=== PATIENT | female | born 1945 | race Two or more races ===

== ENCOUNTER 2016-07-26 22:12 | Inpatient (IN) | payer MEDICARE, OTHER ==
[~2016-07-26] VITALS: Ht 154.9 cm; Wt 136.1 kg
[~2016-07-26 22:12] MED LIST: ASPI-482 PO; SERT100T PO; diuretic PO; losartan PO; multivitamin PO; potassium PO
[2016-07-26 22:40] LABS: BASO % 1 % (0-3); EOS % 2 % (0-3); HEMATOCRIT 33.2 % (36.0-47.0); HEMOGLOBIN 11.2 g/dL (12.0-15.5); LYMPH % 25 % (24-48); MEAN CORPUSCULAR HEMOGLOBIN 31 pg (25-35); MEAN CORPUSCULAR HGB CONC 34 g/dL (31-37); MEAN CORPUSCULAR VOLUME 91 fL (79-100); MONO % 7 % (0-9); NEUT % 66 % (31-73); PLATELET COUNT 213 x10^3/uL (140-400); RED BLOOD COUNT 3.64 x10^6/uL (3.50-5.40); RED CELL DISTRIBUTION WIDTH 13.7 % (11.5-14.5)
[2016-07-26] MEDS ORDERED: PANTOPRAZOLE SODIUM IV 80 MG in IV NORMAL SALINE 100ML 100 ML IV ONE (22:45)
[2016-07-26] MEDS ORDERED: ONDANSETRON PF 4 MG/2 ML VIAL. IV PRN (22:45)
[2016-07-26] MEDS ORDERED: PANTOPRAZOLE IV PUSH 40 MG VIAL. IVP ONE (22:45)
[2016-07-26 22:46] LABS: INR 1.2 (0.8-1.1); PROTHROMBIN TIME PATIENT 14.6 SEC (11.7-14.0)
[2016-07-26 22:52] LABS: NEG OBC FOB NEG; POS OBC FOB POS
[2016-07-26 23:00] LABS: ALBUMIN 3.1 g/dL (3.4-5.0); CALCIUM 8.5 mg/dL (8.5-10.1); CREATININE 0.8 mg/dL (0.6-1.0); DIRECT BILIRUBIN 0.1 mg/dL (0.0-0.2); GFR 71.1; POTASSIUM 4.4 mmol/L (3.5-5.1); TOTAL BILIRUBIN 0.5 mg/dL (0.2-1.0); TOTAL PROTEIN 6.7 g/dL (6.4-8.2)
--- NOTE | 2016-07-26 23:22 | PHYS DOC ---
Past Medical History Past Medical History: Cancer, Depression, Hypertension Past Surgical History: Cancer Surgery, Knee Replacement, Other Additional Past Surgical Histo: LEFT MASECTOMY, FOOT SURGERY, CATARACTS Alcohol Use: None Drug Use: None Adult General Chief Complaint Chief Complaint: NAUSEA/VOMITING/DIARRHA HPI HPI Patient is a 71 year old female who presents with 3 days of dark red blood in stools, loose stools, nonpainful and one episode of emesis with bright red blood this evening. She denies abdominal pain, but has minimal vague nausea. She denies lightheadedness, dyspnea, chest pain, palpitations, back pain, dysuria, hematuria, rectal pain, fever or chills, recent travel or antibiotics. States she had a colonoscopy years ago, but does not follow with a grease remover. Denies history of peptic ulcers, liver disease, or known diverticulosis. Not anticoagulated. PCP is at [facility]. She no longer sees Dr. Martinez. Review of Systems Review of Systems Constitutional: Denies fever or chills [] Eyes: Denies change in visual acuity, redness, or eye pain [] HENT: Denies nasal congestion or sore throat [] Respiratory: Denies cough or shortness of breath [] Cardiovascular: No additional information not addressed in HPI [] GI: Denies abdominal pain [] : Denies dysuria or hematuria [] Musculoskeletal: Denies back pain or joint pain [] Integument: Denies rash or skin lesions [] Neurologic: Denies headache, focal weakness or sensory changes [] Endocrine: Denies polyuria or polydipsia [] Current Medications Current Medications Current Medications Medications (Trade) Dose Ordered Sig/[facility] Start Time Stop Time Status Last Admin Dose Admin Acetaminophen (Tylenol) 650 mg PRN Q4HRS PRN 07/27/16 00:00 07/27/16 23:59 UNV Fentanyl Citrate (Fentanyl 2ml Vial) 50 mcg PRN Q2HR PRN 07/27/16 00:00 07/27/16 23:59 UNV Ondansetron HCl (Zofran) 4 mg PRN Q6HRS PRN 07/26/16 22:45 07/26/16 22:54 4 MG Pantoprazole Sodium (Protonix Vial) 40 mg 1X ONCE 07/26/16 22:45 07/26/16 22:46 DC 07/26/16 22:56 40 MG Pantoprazole Sodium 80 mg/ Sodium Chloride 100 ml @ 10 mls/hr 1X ONCE 07/26/16 22:45 07/27/16 08:44 07/26/16 23:03 10 MLS/HR Potassium Chloride/Dextrose/ Sod Cl 1,000 ml @ 75 mls/hr 1X ONCE 07/27/16 00:00 07/27/16 13:19 UNV Sodium Chloride 1,000 ml @ 1,000 mls/hr 1X ONCE 07/26/16 23:30 07/27/16 00:29 Allergies Allergies Allergies Coded Allergies Type Severity Reaction Last Updated Verified adhesive tape Allergy Unknown 07/26/16 Yes codeine Allergy Unknown 07/26/16 Yes Physical Exam Physical Exam Constitutional: Well developed, well nourished, no acute distress, non-toxic appearance. [] HENT: Normocephalic, atraumatic, bilateral external ears normal, oropharynx moist, nose normal. [] Eyes: PERRLA, EOMI. [] Neck: Normal range of motion, supple. [] Cardiovascular: Regular tachycardia [] Lungs & Thorax: Bilateral breath sounds clear to auscultation [] Abdomen: Bowel sounds normal, soft, no tenderness. Rectal exam with dark red blood on glove, no formed stool in the vault, no bleeding hemorrhoids or fissure , nontender rectal exam. [] Skin: Warm, dry, no erythema, no rash. [] Back: No tenderness, no CVA tenderness. [] Extremities: No tenderness, ROM intact, no edema. [] Neurologic: Alert and oriented X 3, normal motor function, normal sensory function, no focal deficits noted. [] Psychologic: Affect normal, judgement normal, mood normal. [] Current Patient Data Vital Signs Vital Signs Date Time Temp Pulse Resp B/P (MAP) Pulse Ox O2 Delivery O2 Flow Rate FiO2 07/26/16 22:12 97.8 97 22 172/68 (102) 97 Room Air 97.8 Lab Values Laboratory Tests Test 07/26/16 22:20 07/26/16 22:45 White Blood Count 8.0 x10^3/uL (4.0-11.0) Red Blood Count 3.64 x10^6/uL (3.50-5.40) Hemoglobin 11.2 g/dL (12.0-15.5) L Hematocrit 33.2 % (36.0-47.0) L Mean Corpuscular Volume 91 fL (79-100) Mean Corpuscular Hemoglobin 31 pg (25-35) Mean Corpuscular Hemoglobin Concent 34 g/dL (31-37) Red Cell Distribution Width 13.7 % (11.5-14.5) Platelet Count 213 x10^3/uL (140-400) Neutrophils (%) (Auto) 66 % (31-73) Lymphocytes (%) (Auto) 25 % (24-48) Monocytes (%) (Auto) 7 % (0-9) Eosinophils (%) (Auto) 2 % (0-3) Basophils (%) (Auto) 1 % (0-3) Neutrophils # (Auto) 5.3 x10^3uL (1.8-7.7) Lymphocytes # (Auto) 2.0 x10^3/uL (1.0-4.8) Monocytes # (Auto) 0.6 x10^3/uL (0.0-1.1) Eosinophils # (Auto) 0.1 x10^3/uL (0.0-0.7) Basophils # (Auto) 0.0 x10^3/uL (0.0-0.2) Prothrombin Time 14.6 SEC (11.7-14.0) H Prothrombin Time INR 1.2 (0.8-1.1) H PTT 27 SEC (24-38) Sodium Level 143 mmol/L (136-145) Potassium Level 4.4 mmol/L (3.5-5.1) Chloride Level 109 mmol/L (98-107) H Carbon Dioxide Level 23 mmol/L (21-32) Anion Gap 11 (6-14) Blood Urea Nitrogen 43 mg/dL (7-20) H Creatinine 0.8 mg/dL (0.6-1.0) Estimated GFR (Cockcroft-Gault) 71.1 Glucose Level 161 mg/dL (70-99) H Calcium Level 8.5 mg/dL (8.5-10.1) Total Bilirubin 0.5 mg/dL (0.2-1.0) Direct Bilirubin 0.1 mg/dL (0.0-0.2) Aspartate Amino Transferase (AST) 17 U/L (15-37) Alanine Aminotransferase (ALT) 26 U/L (14-59) Alkaline Phosphatase 39 U/L (46-116) L Total Protein 6.7 g/dL (6.4-8.2) Albumin 3.1 g/dL (3.4-5.0) L Stool Occult Blood Positive (NEG) Laboratory Tests 07/26/16 22:20 Laboratory Tests 07/26/16 22:20 EKG EKG EKG as interpreted by me as sinus tachycardia, rate 112, no ST-T changes, normal intervals, no ectopy Course & Med Decision Making Course & Med Decision Making Pertinent Labs and Imaging studies reviewed. (See chart for details) Has history of upper and lower GI bleeding. She was started on Protonix. She was given IV fluids for tachycardia. Laboratory evaluation reveals elevated BUN , reinforcing suspicion for upper GI bleeding. However, clinical concern also for lower GI bleeding. Discussed case with Dr. Quiles, gastroenterology, who agrees with Protonix drip and recommends ICU admission overnight given unclear etiology of bleeding. Discussed case with Dr. Rivero, who will admit. Dragon Disclaimer Dragon Disclaimer This electronic medical record was generated, in whole or in part, using a voice recognition dictation system. Departure Departure Impression: Primary Impression: GI bleed Disposition: ADMITTED INPATIENT Condition: CRITICAL Problem Qualifiers Primary Impression: GI bleed GI bleed type/associated pathology: unspecified gastrointestinal hemorrhage type Qualified Codes: K92.2 - Gastrointestinal hemorrhage, unspecified John SWANSON MD July 26, 2016 23:22
[2016-07-26] MEDS ORDERED: IV NORMAL SALINE 1000ML BAG 1,000 ML IV ONE (23:30)
[2016-07-27] VITALS (17 sets, daily range): BP systolic 126–161; BP diastolic 64–95
[2016-07-27] MEDS ORDERED: fentaNYL PF VIAL 100 MCG/2 ML VIAL IV PRN
[2016-07-27] MEDS ORDERED: POTASSIUM CL 20MEQ D5-0.9%NACL 1,000 ML IV ONE
--- NOTE | 2016-07-27 07:29 | EKG ---
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
[2016-07-27 08:33] LABS: BASO % 0 % (0-3); EOS % 1 % (0-3); HEMATOCRIT 28.2 % (36.0-47.0); HEMOGLOBIN 9.4 g/dL (12.0-15.5); LYMPH # 2.5 x10^3/uL (1.0-4.8); LYMPH % 31 % (24-48); MEAN CORPUSCULAR HEMOGLOBIN 31 pg (25-35); MEAN CORPUSCULAR HGB CONC 33 g/dL (31-37); MEAN CORPUSCULAR VOLUME 93 fL (79-100); MONO % 7 % (0-9); NEUT % 61 % (31-73); PLATELET COUNT 171 x10^3/uL (140-400); RED BLOOD COUNT 3.05 x10^6/uL (3.50-5.40)
--- NOTE | 2016-07-27 09:21 | PDOC2 ---
GI CONSULT Reason For Consult: Upper GI Bleed HPI: HPI: 71 y/o female admitted through ER to ICU reports 2-3 days of bloody stools w/ one episode of bloody emesis. She had not been feeling weel for a couple days w / sinus congestion, headache, and nausea. Took an OTC "sinus pill" and some ibuprofen. (Note used to take ibuprofen frequently but no longer does.) Also takes ASA QD. Decreased appetite yesterday but was eating normally before that point. No weight loss. Has occasional GERD symptoms (specifically mentions heartburn after taking her nerve pill) and uses Prilosec OTC PRN. Stools began as formed yesterday and progressively became more loose w/ increased bleeding. (Denies melena - only notes hematochezia.) No previous EGD. Does recall colonoscopy years ago as normal. Hgb 11.2 (now 9.4) w/ elevated BUN (43), hemoccult was positive. Kept NPO on PPI drip. PMH: PMH: HTN, asthma, depression, GERD, breast cancer, appendectomy, cholecystectomy, tubal ligation, bilateral mastectomy, left lumpectomy, left breast biopsy, multiple feet surgeries, bilateral knee replacements, abdominoplasty, cataract extraction FH: Family History: No pertinent hx Social History: Smoke: No ALCOHOL: none Drugs: None ROS: GEN: Denies fevers, chills, sweats HEENT: +sinus congestion CV: Denies chest pain RESP: Denies shortness of air, cough GI: Per HPI : Denies hematuria, dysuria ENDO: Denies weight changes NEURO: +headache MSK: Denies weakness, joint pain/swelling SKIN: Denies jaundice, pruritus Vitals: Vitals: Vital Signs Date Time Temp Pulse Resp B/P (MAP) Pulse Ox O2 Delivery O2 Flow Rate FiO2 07/27/16 08:04 80 18 138/88 (105) 98 Room Air 07/27/16 07:00 98.2 98.2 Labs: Labs: Laboratory Tests Test 07/26/16 22:20 07/26/16 22:45 07/27/16 08:05 White Blood Count 8.0 x10^3/uL (4.0-11.0) 8.0 x10^3/uL (4.0-11.0) Red Blood Count 3.64 x10^6/uL (3.50-5.40) 3.05 x10^6/uL (3.50-5.40) Hemoglobin 11.2 g/dL (12.0-15.5) 9.4 g/dL (12.0-15.5) Hematocrit 33.2 % (36.0-47.0) 28.2 % (36.0-47.0) Mean Corpuscular Volume 91 fL (79-100) 93 fL (79-100) Mean Corpuscular Hemoglobin 31 pg (25-35) 31 pg (25-35) Mean Corpuscular Hemoglobin Concent 34 g/dL (31-37) 33 g/dL (31-37) Red Cell Distribution Width 13.7 % (11.5-14.5) 14.0 % (11.5-14.5) Platelet Count 213 x10^3/uL (140-400) 171 x10^3/uL (140-400) Neutrophils (%) (Auto) 66 % (31-73) 61 % (31-73) Lymphocytes (%) (Auto) 25 % (24-48) 31 % (24-48) Monocytes (%) (Auto) 7 % (0-9) 7 % (0-9) Eosinophils (%) (Auto) 2 % (0-3) 1 % (0-3) Basophils (%) (Auto) 1 % (0-3) 0 % (0-3) Neutrophils # (Auto) 5.3 x10^3uL (1.8-7.7) 4.9 x10^3uL (1.8-7.7) Lymphocytes # (Auto) 2.0 x10^3/uL (1.0-4.8) 2.5 x10^3/uL (1.0-4.8) Monocytes # (Auto) 0.6 x10^3/uL (0.0-1.1) 0.6 x10^3/uL (0.0-1.1) Eosinophils # (Auto) 0.1 x10^3/uL (0.0-0.7) 0.1 x10^3/uL (0.0-0.7) Basophils # (Auto) 0.0 x10^3/uL (0.0-0.2) 0.0 x10^3/uL (0.0-0.2) Prothrombin Time 14.6 SEC (11.7-14.0) Prothromb Time International Ratio 1.2 (0.8-1.1) Activated Partial Thromboplast Time 27 SEC (24-38) Sodium Level 143 mmol/L (136-145) Potassium Level 4.4 mmol/L (3.5-5.1) Chloride Level 109 mmol/L (98-107) Carbon Dioxide Level 23 mmol/L (21-32) Anion Gap 11 (6-14) Blood Urea Nitrogen 43 mg/dL (7-20) Creatinine 0.8 mg/dL (0.6-1.0) Estimated GFR (Cockcroft-Gault) 71.1 Glucose Level 161 mg/dL (70-99) Calcium Level 8.5 mg/dL (8.5-10.1) Total Bilirubin 0.5 mg/dL (0.2-1.0) Direct Bilirubin 0.1 mg/dL (0.0-0.2) Aspartate Amino Transf (AST/SGOT) 17 U/L (15-37) Alanine Aminotransferase (ALT/SGPT) 26 U/L (14-59) Alkaline Phosphatase 39 U/L (46-116) Total Protein 6.7 g/dL (6.4-8.2) Albumin 3.1 g/dL (3.4-5.0) Stool Occult Blood Positive (NEG) Allergies: Coded Allergies: adhesive tape (Verified Allergy, Unknown, 07/26/16) codeine (Verified Allergy, Unknown, 07/26/16) Medications: Current Medications Medications (Trade) Dose Ordered Sig/[facility] Route PRN Reason Start Time Stop Time Status Last Admin Dose Admin Ondansetron HCl (Zofran) 4 mg PRN Q6HRS PRN IV NAUSEA/VOMITING 07/26/16 22:45 07/26/16 22:54 Pantoprazole Sodium (Protonix Vial) 40 mg 1X ONCE IVP 07/26/16 22:45 07/26/16 22:46 DC 07/26/16 22:56 Pantoprazole Sodium 80 mg/ Sodium Chloride 100 ml @ 10 mls/hr 1X ONCE IV 07/26/16 22:45 07/27/16 08:44 DC 07/26/16 23:03 Sodium Chloride 1,000 ml @ 1,000 mls/hr 1X ONCE IV 07/26/16 23:30 07/27/16 00:29 DC 07/27/16 00:12 Potassium Chloride/Dextrose/ Sod Cl 1,000 ml @ 75 mls/hr 1X ONCE IV 07/27/16 00:00 07/27/16 13:19 07/27/16 00:14 Imaging: Imaging: - PE: GEN: NAD HEENT: Atraumatic, PERRL LUNGS: CTAB HEART: RRR ABD: NABS, S/ND/NT, obese SKIN: No rashes, no jaundice NEURO/PSYCH: A & O 3 A/P: A/P: Hematemesis, hematochezia -2-3 days bloody stools, hematemesis x 1 Anemia -Hgb from 11.2 to 9.4 H/o NSAID use -used to take ibuprofen regularly, not so much now although did take recently for headache GERD -occasional heartburn improved w/ Prilosec OTC PRN CRC screen -recalls normal colonoscopy years ago -- D/w Dr. Quiles. Agree w/ NPO, PPI drip. EGD this afternoon r/o upper GI source. D/w pt, RN, GI lab. MAXX WALTER July 27, 2016 09:21
[2016-07-27] MEDS ORDERED: FURO20TA3 PO (09:45)
[2016-07-27] MEDS ORDERED: CARV6.252 PO (09:45)
[2016-07-27] MEDS ORDERED: POTA20TA82 PO (09:45)
[2016-07-27] MEDS ORDERED: VENTOLIN HFA18 GM INH (09:53)
[2016-07-27] MEDS ORDERED: OMEP20CA9 PO (09:55)
[2016-07-27] MEDS ORDERED: ERGO500012 PO (09:55)
[2016-07-27] MEDS ORDERED: TRAM50TA PO (09:55)
--- NOTE | 2016-07-27 09:56 | PDOC1 ---
History and Physical Social History Smoke: No ALCOHOL: none Drugs: None Current Problem List Problem List Problems Medical Problems: (1) GI bleed Status: Acute Current Medications Current Medications Current Medications Medications (Trade) Dose Ordered Sig/[facility] Start Time Stop Time Status Last Admin Dose Admin Acetaminophen (Tylenol) 650 mg PRN Q4HRS PRN 07/27/16 00:00 07/27/16 23:59 Fentanyl Citrate (Fentanyl 2ml Vial) 50 mcg PRN Q2HR PRN 07/27/16 00:00 07/27/16 23:59 Ondansetron HCl (Zofran) 4 mg PRN Q6HRS PRN 07/26/16 22:45 07/26/16 22:54 4 MG Pantoprazole Sodium (Protonix Vial) 40 mg 1X ONCE 07/26/16 22:45 07/26/16 22:46 DC 07/26/16 22:56 40 MG Pantoprazole Sodium 80 mg/ Sodium Chloride 100 ml @ 10 mls/hr Q10H 07/27/16 10:00 Potassium Chloride/Dextrose/ Sod Cl 1,000 ml @ 75 mls/hr 1X ONCE 07/27/16 00:00 07/27/16 13:19 07/27/16 00:14 75 MLS/HR Sodium Chloride 1,000 ml @ 1,000 mls/hr 1X ONCE 07/26/16 23:30 07/27/16 00:29 DC 07/27/16 00:12 1,000 MLS/HR Allergies Allergies Allergies Coded Allergies Type Severity Reaction Last Updated Verified adhesive tape Allergy Unknown 07/26/16 Yes codeine Allergy Unknown 07/26/16 Yes ROS Review of System CONSTITUTIONAL: No fever or chills EYES: No recent changes SKIN: No rash or itching CARDIOVASCULAR: No chest pain, syncope, palpitations, or edema RESPIRATORY: No SOB or cough GASTROINTESTINAL: diarrhea, coffee ground emesis, hematochezia. NEUROLOGICAL: No headaches or weakness ENDOCRINE: No cold or heat intolerance GENITOURINARY: No urgency or frequency of urination MUSCULOSKELETAL: No back pain or joint pain LYMPHATICS: No enlarged lymph nodes PSYCHIATRIC: No anxiety or depression Physical Exam Physical Exam GEN.: No apparent distress. Alert and oriented. obese HEENT: Head is normocephalic, atraumatic NECK: Supple. no JVD LUNGS: Clear to auscultation. Normal airflow. HEART: RRR, S1, S2 present. Peripheral pulses intact ABDOMEN: Soft, nontender. Positive bowel sounds. EXTREMITIES: Without any cyanosis. NEUROLOGIC: Normal speech, normal tone PSYCHIATRIC: Normal affect, normal mood. SKIN: No ulcerations Vitals Vitals Vital Signs Date Time Temp Pulse Resp B/P (MAP) Pulse Ox O2 Delivery O2 Flow Rate FiO2 07/27/16 09:00 73 18 145/79 (101) 96 Room Air 07/27/16 07:00 98.2 98.2 Labs Labs Laboratory Tests Test 07/26/16 22:20 07/26/16 22:45 07/27/16 08:05 White Blood Count 8.0 x10^3/uL (4.0-11.0) 8.0 x10^3/uL (4.0-11.0) Red Blood Count 3.64 x10^6/uL (3.50-5.40) 3.05 x10^6/uL (3.50-5.40) Hemoglobin 11.2 g/dL (12.0-15.5) 9.4 g/dL (12.0-15.5) Hematocrit 33.2 % (36.0-47.0) 28.2 % (36.0-47.0) Mean Corpuscular Volume 91 fL (79-100) 93 fL (79-100) Mean Corpuscular Hemoglobin 31 pg (25-35) 31 pg (25-35) Mean Corpuscular Hemoglobin Concent 34 g/dL (31-37) 33 g/dL (31-37) Red Cell Distribution Width 13.7 % (11.5-14.5) 14.0 % (11.5-14.5) Platelet Count 213 x10^3/uL (140-400) 171 x10^3/uL (140-400) Neutrophils (%) (Auto) 66 % (31-73) 61 % (31-73) Lymphocytes (%) (Auto) 25 % (24-48) 31 % (24-48) Monocytes (%) (Auto) 7 % (0-9) 7 % (0-9) Eosinophils (%) (Auto) 2 % (0-3) 1 % (0-3) Basophils (%) (Auto) 1 % (0-3) 0 % (0-3) Neutrophils # (Auto) 5.3 x10^3uL (1.8-7.7) 4.9 x10^3uL (1.8-7.7) Lymphocytes # (Auto) 2.0 x10^3/uL (1.0-4.8) 2.5 x10^3/uL (1.0-4.8) Monocytes # (Auto) 0.6 x10^3/uL (0.0-1.1) 0.6 x10^3/uL (0.0-1.1) Eosinophils # (Auto) 0.1 x10^3/uL (0.0-0.7) 0.1 x10^3/uL (0.0-0.7) Basophils # (Auto) 0.0 x10^3/uL (0.0-0.2) 0.0 x10^3/uL (0.0-0.2) Prothrombin Time 14.6 SEC (11.7-14.0) Prothromb Time International Ratio 1.2 (0.8-1.1) Activated Partial Thromboplast Time 27 SEC (24-38) Sodium Level 143 mmol/L (136-145) Potassium Level 4.4 mmol/L (3.5-5.1) Chloride Level 109 mmol/L (98-107) Carbon Dioxide Level 23 mmol/L (21-32) Anion Gap 11 (6-14) Blood Urea Nitrogen 43 mg/dL (7-20) Creatinine 0.8 mg/dL (0.6-1.0) Estimated GFR (Cockcroft-Gault) 71.1 Glucose Level 161 mg/dL (70-99) Calcium Level 8.5 mg/dL (8.5-10.1) Total Bilirubin 0.5 mg/dL (0.2-1.0) Direct Bilirubin 0.1 mg/dL (0.0-0.2) Aspartate Amino Transf (AST/SGOT) 17 U/L (15-37) Alanine Aminotransferase (ALT/SGPT) 26 U/L (14-59) Alkaline Phosphatase 39 U/L (46-116) Total Protein 6.7 g/dL (6.4-8.2) Albumin 3.1 g/dL (3.4-5.0) Stool Occult Blood Positive (NEG) Laboratory Tests Test 07/26/16 22:20 07/26/16 22:45 07/27/16 08:05 White Blood Count 8.0 x10^3/uL (4.0-11.0) 8.0 x10^3/uL (4.0-11.0) Red Blood Count 3.64 x10^6/uL (3.50-5.40) 3.05 x10^6/uL (3.50-5.40) Hemoglobin 11.2 g/dL (12.0-15.5) 9.4 g/dL (12.0-15.5) Hematocrit 33.2 % (36.0-47.0) 28.2 % (36.0-47.0) Mean Corpuscular Volume 91 fL (79-100) 93 fL (79-100) Mean Corpuscular Hemoglobin 31 pg (25-35) 31 pg (25-35) Mean Corpuscular Hemoglobin Concent 34 g/dL (31-37) 33 g/dL (31-37) Red Cell Distribution Width 13.7 % (11.5-14.5) 14.0 % (11.5-14.5) Platelet Count 213 x10^3/uL (140-400) 171 x10^3/uL (140-400) Neutrophils (%) (Auto) 66 % (31-73) 61 % (31-73) Lymphocytes (%) (Auto) 25 % (24-48) 31 % (24-48) Monocytes (%) (Auto) 7 % (0-9) 7 % (0-9) Eosinophils (%) (Auto) 2 % (0-3) 1 % (0-3) Basophils (%) (Auto) 1 % (0-3) 0 % (0-3) Neutrophils # (Auto) 5.3 x10^3uL (1.8-7.7) 4.9 x10^3uL (1.8-7.7) Lymphocytes # (Auto) 2.0 x10^3/uL (1.0-4.8) 2.5 x10^3/uL (1.0-4.8) Monocytes # (Auto) 0.6 x10^3/uL (0.0-1.1) 0.6 x10^3/uL (0.0-1.1) Eosinophils # (Auto) 0.1 x10^3/uL (0.0-0.7) 0.1 x10^3/uL (0.0-0.7) Basophils # (Auto) 0.0 x10^3/uL (0.0-0.2) 0.0 x10^3/uL (0.0-0.2) Prothrombin Time 14.6 SEC (11.7-14.0) Prothromb Time International Ratio 1.2 (0.8-1.1) Activated Partial Thromboplast Time 27 SEC (24-38) Sodium Level 143 mmol/L (136-145) Potassium Level 4.4 mmol/L (3.5-5.1) Chloride Level 109 mmol/L (98-107) Carbon Dioxide Level 23 mmol/L (21-32) Anion Gap 11 (6-14) Blood Urea Nitrogen 43 mg/dL (7-20) Creatinine 0.8 mg/dL (0.6-1.0) Estimated GFR (Cockcroft-Gault) 71.1 Glucose Level 161 mg/dL (70-99) Calcium Level 8.5 mg/dL (8.5-10.1) Total Bilirubin 0.5 mg/dL (0.2-1.0) Direct Bilirubin 0.1 mg/dL (0.0-0.2) Aspartate Amino Transf (AST/SGOT) 17 U/L (15-37) Alanine Aminotransferase (ALT/SGPT) 26 U/L (14-59) Alkaline Phosphatase 39 U/L (46-116) Total Protein 6.7 g/dL (6.4-8.2) Albumin 3.1 g/dL (3.4-5.0) Stool Occult Blood Positive (NEG) VTE Prophylaxis Ordered VTE Prophylaxis Devices: Contraindicated VTE Pharmacological Prophylaxi: Contraindicated SABINE BRISCOE MD July 27, 2016 09:56
[2016-07-27] MEDS: PANTOPRAZOLE SODIUM IV 80 MG in IV NORMAL SALINE 100ML 100 ML IV SCH ×2 (11:08→23:00)
[2016-07-27] MEDS ORDERED: NON FORMULARY ITEM (Albuterol Sulfate (Ventolin Hfa Inhaler) 2 PUFF) INH PRN (11:15)
[2016-07-27] MEDS ORDERED: ONDANSETRON PF 4 MG/2 ML VIAL. IV PRN (11:15)
[2016-07-27] MEDS ORDERED: ACETAMINOPHEN 325 MG TABLET. PO PRN ×2 (11:15)
[2016-07-27] MEDS ORDERED: traMADol 50 MG TABLET PO PRN (11:15)
[2016-07-27] MEDS ORDERED: ALBUTEROL SULFATE 2.5 MG/3 ML NEBU. NEB PRN (11:15)
[2016-07-27] MEDS ORDERED: hydrALAZINE 20 MG/ML VIAL. IVP PRN (11:15)
[2016-07-27] MEDS ORDERED: NON FORMULARY ITEM (Omeprazole 20 MG) PO PRN (11:15)
--- NOTE | 2016-07-27 11:53 | HP ---
ADMIT DATE: 07/27/2016 CHIEF COMPLAINT: Hematochezia, diarrhea, and coffee-ground emesis. HISTORY OF PRESENT ILLNESS: A 71-year-old female patient with prior history of gastric lap band, GERD, and obesity who presented to the ER with complaints of 2 to 3 days of diarrhea, nausea, and coffee-ground emesis. She had several episodes of diarrhea yesterday, noted to have bright red blood and also noted to have coffee-ground emesis. She denies any prior history of internal hemorrhoids or gastric ulcers. However, she had a gastric lap band placed a long time ago. She did not recall the time and place. She was admitted to the hospital for hematochezia and further workup, and at the time of her admission, her hemoglobin was 11.2, and it is down to 9.4 today. PAST MEDICAL HISTORY: Hypertension, GERD, depression, and breast cancer. PAST SURGICAL HISTORY: Appendectomy, cholecystectomy, tubal ligation, lap band, bilateral mastectomy, left lumpectomy, left breast biopsy, multiple feet surgeries, bilateral knee replacements, and cataract extraction. FAMILY HISTORY: No GI cancers. Sister had some cancer. SOCIAL HISTORY: No smoking, no alcohol, no drug abuse. REVIEW OF SYSTEMS: Please see my electronic H and P. PHYSICAL EXAMINATION: Please see my electronic H and P. ALLERGIES: CODEINE. LABORATORY DATA: CBC within normal limits except for hemoglobin 11.2 at presentation. Now, it is 9.4. Chemistry: Sodium is 143, potassium 4.4, chloride is 109, anion gap is 11, BUN is 43, creatinine 0.8, and glucose 161. Coagulation panel: INR is 1.2, APTT 27. IMAGING STUDIES: Not done. ASSESSMENT AND PLAN: 1. Diarrhea, nausea, coffee-ground emesis, and hematochezia. 2. Anemia, present on admission. Prior history of lap band. 3. History of breast cancer. 4. Hypertension. 5. Gastroesophageal reflux disease. PLAN: 1. Based on the patient's symptoms, she might have upper gastrointestinal bleeding. Currently, she is on Protonix drip and placed in ICU. We will do serial hemoglobin monitoring and resume her home medications. 2. Gastroenterology has been consulted. The patient is scheduled to have EGD today. 3. If the patient's hemoglobin drops less than 8, we will transfuse blood as needed. 4. Continue Protonix. 5. Monitor CBC and BMP in the a.m. 6. P.r.n. hydralazine if the patient is not able to take any p.o. pills. SABINE BRISCOE MD DR: DERIK/jesus alberto JOB#: [id number] / [id number] TORI
[2016-07-27] MEDS ORDERED: LIDOCAINE 2% PF Vial for OR 5 ML VIAL. ONE (12:58)
[2016-07-27] MEDS ORDERED: PROPOFOL 20 ML IV ONE (12:58)
--- NOTE | 2016-07-27 13:18 | PDOC4 ---
PROCEDURE Procedure EGD Indication: UGI bleeding. Meds: per anesthesia. Findings: E-Less than grade I reflux at [place]. G-s/p VBG with staple line breakdown. In distal body/antrum, large (5-6cm) smooth tumor that will "dimple" when probed, consistent with lipoma; ulcerated at the apex with hematin staining c/w this as site of bleeding. D-Normal to second portion save non-specific erythema in bulb. Bianka. well. IMP: ulcerated lipoma s/p VBG REC: ice chips OK. continue PPI. surgical consult re: resection. Monitor for bleeding. DINA BARBOZA MD July 27, 2016 13:18
--- NOTE | 2016-07-27 14:21 | PDOC2 ---
FARZANA DUBOIS Rik RADIATION ONCOLOGY THERAPIST 07/27/16 1421: CONSULT Date of Consult Date of Consult DATE: 07/27/16 TIME: 14:16 Reason for Consult Reason for Consult: GI bleed Referring Physician Referring Physician: Dr Quiles Identification/Chief Complaint Chief Complaint bleeding Source Source: Chart review, Patient History of Present Illness Reason for Visit: Seen in ICU postop egd. Admitted with hematemesis and hematochezia. 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 No history of GI bleeds, she does take NSAIDS at times Past Medical History Pulmonary: Asthma GI: GERD Heme/Onc: Cancer (breast) Psych: Depression Past Surgical History Past Surgical History: Appendectomy, Cholecystectomy, Mastectomy, Tubal Ligation, Other (VBG, abdomimoplasty) Social History No ALCOHOL: none Drugs: None Lives: Alone Current Problem List Problem List Problems Medical Problems: (1) GI bleed Status: Acute Current Medications Current Medications Current Medications Ondansetron HCl (Zofran) 4 mg PRN Q6HRS PRN IV NAUSEA/VOMITING Last administered on 07/26/16 22:54; Start 07/26/16 at 22:45 Pantoprazole Sodium (Protonix Vial) 40 mg 1X ONCE IVP Last administered on 22:56; Start 07/26/16 at 22:45; Stop 07/26/16 at 22:46; Status DC Pantoprazole Sodium 80 mg/ Sodium Chloride 100 ml @ 10 mls/hr 1X ONCE IV Last administered on 07/26/16 23:03; Start 07/26/16 at 22:45; Stop 07/27/16 at 08:44; Status DC Sodium Chloride 1,000 ml @ 1,000 mls/hr 1X ONCE IV Last administered on 00:12; Start 07/26/16 at 23:30; Stop 07/27/16 at 00:29; Status DC Fentanyl Citrate (Fentanyl 2ml Vial) 50 mcg PRN Q2HR PRN IV PAIN; Start at 00:00; Stop 07/27/16 at 23:59 Acetaminophen (Tylenol) 650 mg PRN Q4HRS PRN PO FEVER; Start 07/27/16 at 00:00 ; Stop 07/27/16 at 23:59 Potassium Chloride/Dextrose/ Sod Cl 1,000 ml @ 75 mls/hr 1X ONCE IV Last administered on 07/27/16 00:14; Start 07/27/16 at 00:00; Stop 07/27/16 at 13:19 ; Status DC Pantoprazole Sodium 80 mg/ Sodium Chloride 100 ml @ 10 mls/hr Q10H IV Last administered on 07/27/16 11:08; Start 07/27/16 at 10:00 Carvedilol (Coreg) 6.25 mg BIDWMEALS PO ; Start 07/27/16 at 17:00 Furosemide (Lasix) 20 mg DAILY PO ; Start 07/28/16 at 09:00 Tramadol HCl (Ultram) 50 mg Q4H PRN PO PAIN; Start 07/27/16 at 11:15 Non-Formulary Medication 2 puff PRN Q6HRS PRN INH SHORTNESS OF BREATH; Start at 11:15; Status UNV Non-Formulary Medication 20 mg PRN DAILY PRN PO SEE COMMENTS; Start 07/27/16 at 11:15; Status UNV Potassium Chloride (Klor-Con) 20 meq DAILYWBKFT PO ; Start 07/28/16 at 08:00 Sertraline HCl (Zoloft) 100 mg DAILY PO ; Start 07/28/16 at 09:00 Losartan Potassium (Cozaar) 50 mg DAILY PO ; Start 07/28/16 at 09:00 Acetaminophen (Tylenol) 325 mg PRN Q6HRS PRN PO MILD PAIN / TEMP; Start at 11:15 Hydralazine HCl (Apresoline) 10 mg PRN Q4HRS PRN IVP ELEVATED BP, SEE COMMENTS ; Start 07/27/16 at 11:15 Ondansetron HCl (Zofran) 4 mg PRN Q8HRS PRN IV NAUSEA/VOMITING; Start 07/27/16 at 11:15 Albuterol Sulfate (Ventolin Neb Soln) 2.5 mg PRN Q4HRS PRN NEB SHORTNESS OF BREATH; Start 07/27/16 at 11:15 Propofol 20 ml @ As Directed STK-MED ONCE IV ; Start 07/27/16 at 12:58; Stop at 12:59; Status DC Lidocaine HCl (Lidocaine Pf 2% Vial) 5 ml STK-MED ONCE .ROUTE ; Start 07/27/16 at 12:58; Stop 07/27/16 at 12:59; Status DC Active Scripts Active Reported Tramadol Hcl 50 Mg Tablet 50 Mg PO Q4H PRN Vitamin D2 (Ergocalciferol (Vitamin D2)) 50,000 Unit Capsule 50,000 Unit PO WEEKLY Omeprazole 20 Mg Capsule.dr 20 Mg PO PRN DAILY PRN Ventolin Hfa Inhaler (Albuterol Sulfate) 18 Gm Hfa.aer.ad 2 Puff INH PRN Q6HRS PRN Potassium Chloride 20 Meq Tablet.er 20 Meq PO DAILY Carvedilol 6.25 Mg Tablet 6.25 Mg PO BIDWMEALS Furosemide 20 Mg Tablet 20 Mg PO DAILY [multivitamin] 1 Tab PO DAILY Aspir 81 (Aspirin) 81 Mg Tablet.dr 1 Tab PO DAILY Zoloft (Sertraline Hcl) 100 Mg Tablet 1 Tab PO DAILY [losartan] 100 Mg PO DAILY Allergies Allergies: Coded Allergies: adhesive tape (Verified Allergy, Unknown, 07/27/16) codeine (Verified Allergy, Unknown, 07/27/16) ROS General: YES: Chills, No: Other (fevers) PSYCHOLOGICAL ROS: No: Anxiety, Depression Eyes: No Blurry vision, No Double vision HEENT: No: Heacaches, Sore Throat Hematological and Lymphatic: YES: Bleeding Problems, No: Blood Clots Respiratory: YES: SOB with excertion, No: Cough Cardiovascular: No Chest Pain, No Palpitations Gastrointestinal: Yes Nausea, Yes Abdominal Pain Genitourinary: No Dysuria, No Hematuria Musculoskeletal: No Joint Pain, No Muscle Pain Neurological: No Impaired Coord/balance, No Numbness/Tingling Skin: No Pruritus, No Rash Physical Exam General: Alert, Oriented X3, Cooperative, No acute distress HEENT: PERRLA, Mucous membr. moist/pink Lungs: Clear to auscultation, Normal air movement Heart: Regular rate, Normal S1, Normal S2, No murmurs Abdomen: Soft, Other (ND, obese abdomen, mild tenderness to epigastric, midline scar present ) Extremities: No clubbing, No cyanosis Skin: No rashes, No breakdown Neuro: Normal gait, Normal speech Psych/Mental Status: Mental status NL, Mood NL MUSCULOSKELETAL: No deformity, No swelling Vitals VITALS Vital Signs Date Time Temp Pulse Resp B/P (MAP) Pulse Ox O2 Delivery O2 Flow Rate FiO2 07/27/16 14:00 Room Air 07/27/16 14:00 99.0 75 14 138/72 (94) 97 99.0 07/27/16 13:30 2 Labs Labs Laboratory Tests Test 07/26/16 22:20 07/26/16 22:45 07/27/16 08:05 White Blood Count 8.0 x10^3/uL (4.0-11.0) 8.0 x10^3/uL (4.0-11.0) Red Blood Count 3.64 x10^6/uL (3.50-5.40) 3.05 x10^6/uL (3.50-5.40) Hemoglobin 11.2 g/dL (12.0-15.5) 9.4 g/dL (12.0-15.5) Hematocrit 33.2 % (36.0-47.0) 28.2 % (36.0-47.0) Mean Corpuscular Volume 91 fL (79-100) 93 fL (79-100) Mean Corpuscular Hemoglobin 31 pg (25-35) 31 pg (25-35) Mean Corpuscular Hemoglobin Concent 34 g/dL (31-37) 33 g/dL (31-37) Red Cell Distribution Width 13.7 % (11.5-14.5) 14.0 % (11.5-14.5) Platelet Count 213 x10^3/uL (140-400) 171 x10^3/uL (140-400) Neutrophils (%) (Auto) 66 % (31-73) 61 % (31-73) Lymphocytes (%) (Auto) 25 % (24-48) 31 % (24-48) Monocytes (%) (Auto) 7 % (0-9) 7 % (0-9) Eosinophils (%) (Auto) 2 % (0-3) 1 % (0-3) Basophils (%) (Auto) 1 % (0-3) 0 % (0-3) Neutrophils # (Auto) 5.3 x10^3uL (1.8-7.7) 4.9 x10^3uL (1.8-7.7) Lymphocytes # (Auto) 2.0 x10^3/uL (1.0-4.8) 2.5 x10^3/uL (1.0-4.8) Monocytes # (Auto) 0.6 x10^3/uL (0.0-1.1) 0.6 x10^3/uL (0.0-1.1) Eosinophils # (Auto) 0.1 x10^3/uL (0.0-0.7) 0.1 x10^3/uL (0.0-0.7) Basophils # (Auto) 0.0 x10^3/uL (0.0-0.2) 0.0 x10^3/uL (0.0-0.2) Prothrombin Time 14.6 SEC (11.7-14.0) Prothromb Time International Ratio 1.2 (0.8-1.1) Activated Partial Thromboplast Time 27 SEC (24-38) Sodium Level 143 mmol/L (136-145) Potassium Level 4.4 mmol/L (3.5-5.1) Chloride Level 109 mmol/L (98-107) Carbon Dioxide Level 23 mmol/L (21-32) Anion Gap 11 (6-14) Blood Urea Nitrogen 43 mg/dL (7-20) Creatinine 0.8 mg/dL (0.6-1.0) Estimated GFR (Cockcroft-Gault) 71.1 Glucose Level 161 mg/dL (70-99) Calcium Level 8.5 mg/dL (8.5-10.1) Total Bilirubin 0.5 mg/dL (0.2-1.0) Direct Bilirubin 0.1 mg/dL (0.0-0.2) Aspartate Amino Transf (AST/SGOT) 17 U/L (15-37) Alanine Aminotransferase (ALT/SGPT) 26 U/L (14-59) Alkaline Phosphatase 39 U/L (46-116) Total Protein 6.7 g/dL (6.4-8.2) Albumin 3.1 g/dL (3.4-5.0) Stool Occult Blood Positive (NEG) Laboratory Tests Test 07/26/16 22:20 07/26/16 22:45 07/27/16 08:05 White Blood Count 8.0 x10^3/uL (4.0-11.0) 8.0 x10^3/uL (4.0-11.0) Red Blood Count 3.64 x10^6/uL (3.50-5.40) 3.05 x10^6/uL (3.50-5.40) Hemoglobin 11.2 g/dL (12.0-15.5) 9.4 g/dL (12.0-15.5) Hematocrit 33.2 % (36.0-47.0) 28.2 % (36.0-47.0) Mean Corpuscular Volume 91 fL (79-100) 93 fL (79-100) Mean Corpuscular Hemoglobin 31 pg (25-35) 31 pg (25-35) Mean Corpuscular Hemoglobin Concent 34 g/dL (31-37) 33 g/dL (31-37) Red Cell Distribution Width 13.7 % (11.5-14.5) 14.0 % (11.5-14.5) Platelet Count 213 x10^3/uL (140-400) 171 x10^3/uL (140-400) Neutrophils (%) (Auto) 66 % (31-73) 61 % (31-73) Lymphocytes (%) (Auto) 25 % (24-48) 31 % (24-48) Monocytes (%) (Auto) 7 % (0-9) 7 % (0-9) Eosinophils (%) (Auto) 2 % (0-3) 1 % (0-3) Basophils (%) (Auto) 1 % (0-3) 0 % (0-3) Neutrophils # (Auto) 5.3 x10^3uL (1.8-7.7) 4.9 x10^3uL (1.8-7.7) Lymphocytes # (Auto) 2.0 x10^3/uL (1.0-4.8) 2.5 x10^3/uL (1.0-4.8) Monocytes # (Auto) 0.6 x10^3/uL (0.0-1.1) 0.6 x10^3/uL (0.0-1.1) Eosinophils # (Auto) 0.1 x10^3/uL (0.0-0.7) 0.1 x10^3/uL (0.0-0.7) Basophils # (Auto) 0.0 x10^3/uL (0.0-0.2) 0.0 x10^3/uL (0.0-0.2) Prothrombin Time 14.6 SEC (11.7-14.0) Prothromb Time International Ratio 1.2 (0.8-1.1) Activated Partial Thromboplast Time 27 SEC (24-38) Sodium Level 143 mmol/L (136-145) Potassium Level 4.4 mmol/L (3.5-5.1) Chloride Level 109 mmol/L (98-107) Carbon Dioxide Level 23 mmol/L (21-32) Anion Gap 11 (6-14) Blood Urea Nitrogen 43 mg/dL (7-20) Creatinine 0.8 mg/dL (0.6-1.0) Estimated GFR (Cockcroft-Gault) 71.1 Glucose Level 161 mg/dL (70-99) Calcium Level 8.5 mg/dL (8.5-10.1) Total Bilirubin 0.5 mg/dL (0.2-1.0) Direct Bilirubin 0.1 mg/dL (0.0-0.2) Aspartate Amino Transf (AST/SGOT) 17 U/L (15-37) Alanine Aminotransferase (ALT/SGPT) 26 U/L (14-59) Alkaline Phosphatase 39 U/L (46-116) Total Protein 6.7 g/dL (6.4-8.2) Albumin 3.1 g/dL (3.4-5.0) Stool Occult Blood Positive (NEG) Assessment/Plan Assessment/Plan GI bleed, gastric lipoma obesity, BMI 56.7 multiple abdominal surgeries in past will check upper GI DIGNA BERNABE MD 07/27/16 1722: CONSULT Allergies Allergies: Coded Allergies: adhesive tape (Verified Allergy, Unknown, 07/27/16) codeine (Verified Allergy, Unknown, 07/27/16) Assessment/Plan Assessment/Plan Reviewed with Ms Dubois, agree with above, will check upper GI to further evaluate FARZANA DUBOIS APRN July 27, 2016 14:21 DIGNA BERNABE MD July 27, 2016 17:22
[2016-07-27] MEDS ORDERED: BARIUM SULFATE 60% 355 ML SUSP PO ONE (15:00)
[2016-07-27] MEDS ORDERED: BARIUM SULFATE 96% 397 GM ENEMA. PR ONE (15:00)
[2016-07-27] MEDS ORDERED: SIMETHICONE/SOD BICARB/CITRIC ACID PACKET. PO ONE (15:00)
--- NOTE | 2016-07-27 15:53 | RAD ---
Double contrast upper GI, 07/27/2016: History: Gastric lipoma, bleeding The study was performed utilizing high density barium and gas-forming crystals followed by regular liquid barium. 4.1 minutes of fluoroscopy time was utilized. 23 static and dynamic fluoroscopic spot images were recorded. The swallowing mechanism is intact. The esophageal peristalsis is normal. There is a moderate size hiatal hernia. There is moderate associated spontaneous gastroesophageal reflux. The patient's known gastric mass was not clearly delineated. There is a small apparent ulceration in the body of the stomach along the lesser curvature. There is good flow of contrast into the duodenum. The duodenal bulb and visualized small bowel are unremarkable. IMPRESSION: 1. Moderate size hiatal hernia with moderate spontaneous gastroesophageal reflux. 2. Small ulceration in the body of the stomach compatible with the history of an endoscopically delineated ulcerated mass.
[2016-07-27] MEDS: CARVEDILOL 6.25 MG TABLET. PO SCH (16:34)
[2016-07-28 03:00] VITALS: BP 141/69
[2016-07-28 06:06] LABS: BASO % 0 % (0-3); EOS % 3 % (0-3); HEMATOCRIT 27.5 % (36.0-47.0); HEMOGLOBIN 9.3 g/dL (12.0-15.5); LYMPH # 2.4 x10^3/uL (1.0-4.8); LYMPH % 34 % (24-48); MEAN CORPUSCULAR HEMOGLOBIN 31 pg (25-35); MEAN CORPUSCULAR HGB CONC 34 g/dL (31-37); MEAN CORPUSCULAR VOLUME 92 fL (79-100); MONO % 7 % (0-9); NEUT % 56 % (31-73); PLATELET COUNT 166 x10^3/uL (140-400); RED BLOOD COUNT 2.98 x10^6/uL (3.50-5.40); RED CELL DISTRIBUTION WIDTH 14.2 % (11.5-14.5); WHITE BLOOD COUNT 7.1 x10^3/uL (4.0-11.0)
[2016-07-28 06:24] LABS: CALCIUM 8.2 mg/dL (8.5-10.1); CREATININE 0.8 mg/dL (0.6-1.0); GFR 71.1; POTASSIUM 3.7 mmol/L (3.5-5.1)
[2016-07-28 07:00] VITALS: BP 120/64
[2016-07-28] MEDS: FUROSEMIDE 20 MG TABLET PO SCH (08:49)
[2016-07-28] MEDS: PANTOPRAZOLE SODIUM IV 80 MG in IV NORMAL SALINE 100ML 100 ML IV SCH ×3 (08:49→22:30)
[2016-07-28] MEDS: SERTRALINE 50 MG TABLET. PO SCH (08:50)
[2016-07-28] MEDS: CARVEDILOL 6.25 MG TABLET. PO SCH ×2 (08:50→16:42)
[2016-07-28] MEDS: POTASSIUM CHLORIDE 20 MEQ TABLET.ER. PO SCH (08:50)
[2016-07-28] MEDS: LOSARTAN POTASSIUM 50 MG TABLET. PO SCH (08:51)
[2016-07-28] MEDS ORDERED: IOHEXOL 240 MG/ML 50ML VIAL. PO ONE (10:00)
[2016-07-28] MEDS ORDERED: CONTRAST GIVEN MC PRN (10:00)
[2016-07-28] MEDS ORDERED: IOHEXOL 300 MG/ML 75 ML VIAL IV ONE (10:00)
--- NOTE | 2016-07-28 10:37 | PDOC ---
Subjective: Subjective: Doing okay. No abd pain, no bleeding today. Says spoke w/ Dr. Rodriguez, having CT today. Objective: Vital Signs: Vital Signs Date Time Temp Pulse Resp B/P (MAP) Pulse Ox O2 Delivery O2 Flow Rate FiO2 07/28/16 08:51 70 120/64 07/28/16 07:00 98.1 20 96 Room Air 98.1 07/27/16 13:30 2 Labs: Laboratory Tests Test 07/28/16 05:05 White Blood Count 7.1 x10^3/uL Red Blood Count 2.98 x10^6/uL Hemoglobin 9.3 g/dL Hematocrit 27.5 % Mean Corpuscular Volume 92 fL Mean Corpuscular Hemoglobin 31 pg Mean Corpuscular Hemoglobin Concent 34 g/dL Red Cell Distribution Width 14.2 % Platelet Count 166 x10^3/uL Neutrophils (%) (Auto) 56 % Lymphocytes (%) (Auto) 34 % Monocytes (%) (Auto) 7 % Eosinophils (%) (Auto) 3 % Basophils (%) (Auto) 0 % Neutrophils # (Auto) 3.9 x10^3uL Lymphocytes # (Auto) 2.4 x10^3/uL Monocytes # (Auto) 0.5 x10^3/uL Eosinophils # (Auto) 0.2 x10^3/uL Basophils # (Auto) 0.0 x10^3/uL Sodium Level 147 mmol/L Potassium Level 3.7 mmol/L Chloride Level 112 mmol/L Carbon Dioxide Level 26 mmol/L Anion Gap 9 Blood Urea Nitrogen 23 mg/dL Creatinine 0.8 mg/dL Estimated GFR (Cockcroft-Gault) 71.1 Glucose Level 91 mg/dL Calcium Level 8.2 mg/dL Imaging: EGD 07/27/16 E-Less than grade I reflux at [place]. G-s/p VBG with staple line breakdown. In distal body/antrum, large (5-6cm) smooth tumor that will "dimple" when probed, consistent with lipoma; ulcerated at the apex with hematin staining c/w this as site of bleeding. D-Normal to second portion save non-specific erythema in bulb. IMP: ulcerated lipoma s/p VBG PE: GEN: NAD LUNGS: CTAB HEART: RRR ABD: NABS, S/ND/NT NEURO/PSYCH: A & O 3 A/P: Hematemesis, hematochezia/melena - none today -Hgb stable -EGD yesterday w/ ulcerated lipoma, also note s/p VBG with staple line breakdown -surgery now following, upper GI as above, CT ordered -on ice chips, IV PPI -- Await CT, surgical recs. MAXX WALTER July 28, 2016 10:37
[2016-07-28 11:00] VITALS: BP 123/76
--- NOTE | 2016-07-28 11:23 | PDOC ---
PROGRESS NOTES Chief Complaint Chief Complaint cc: hematemesis A/P 1. 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 2. Anemia, present on admission. Prior history of lap band. 3. History of breast cancer. 4. Hypertension. 5. Gastroesophageal reflux disease. History of Present Illness History of Present Illness doing better no fever no chills. Vitals Vitals Vital Signs Date Time Temp Pulse Resp B/P (MAP) Pulse Ox O2 Delivery O2 Flow Rate FiO2 07/28/16 08:51 70 120/64 07/28/16 07:00 98.1 20 96 Room Air 98.1 07/27/16 13:30 2 Physical Exam General: Alert, Oriented X3, Cooperative, No acute distress Heart: Regular rate, Normal S1, Normal S2, No murmurs Lungs: Clear Abdomen: Normal bowel sounds, Soft, Other (ND, obese abdomen, mild tenderness to epigastric, midline scar present ) Extremities: No clubbing, No cyanosis Skin: No rashes, No breakdown Labs LABS Laboratory Tests Test 07/28/16 05:05 White Blood Count 7.1 x10^3/uL (4.0-11.0) Red Blood Count 2.98 x10^6/uL (3.50-5.40) Hemoglobin 9.3 g/dL (12.0-15.5) Hematocrit 27.5 % (36.0-47.0) Mean Corpuscular Volume 92 fL (79-100) Mean Corpuscular Hemoglobin 31 pg (25-35) Mean Corpuscular Hemoglobin Concent 34 g/dL (31-37) Red Cell Distribution Width 14.2 % (11.5-14.5) Platelet Count 166 x10^3/uL (140-400) Neutrophils (%) (Auto) 56 % (31-73) Lymphocytes (%) (Auto) 34 % (24-48) Monocytes (%) (Auto) 7 % (0-9) Eosinophils (%) (Auto) 3 % (0-3) Basophils (%) (Auto) 0 % (0-3) Neutrophils # (Auto) 3.9 x10^3uL (1.8-7.7) Lymphocytes # (Auto) 2.4 x10^3/uL (1.0-4.8) Monocytes # (Auto) 0.5 x10^3/uL (0.0-1.1) Eosinophils # (Auto) 0.2 x10^3/uL (0.0-0.7) Basophils # (Auto) 0.0 x10^3/uL (0.0-0.2) Sodium Level 147 mmol/L (136-145) Potassium Level 3.7 mmol/L (3.5-5.1) Chloride Level 112 mmol/L (98-107) Carbon Dioxide Level 26 mmol/L (21-32) Anion Gap 9 (6-14) Blood Urea Nitrogen 23 mg/dL (7-20) Creatinine 0.8 mg/dL (0.6-1.0) Estimated GFR (Cockcroft-Gault) 71.1 Glucose Level 91 mg/dL (70-99) Calcium Level 8.2 mg/dL (8.5-10.1) Assessment and Plan Assessmemt and Plan Problems Medical Problems: (1) GI bleed Status: Acute Problems: Comment Review of Relevant I have reviewed the following items hans (where applicable) has been applied. Labs Laboratory Tests Test 07/26/16 22:20 07/26/16 22:45 07/27/16 02:00 07/27/16 08:05 White Blood Count 8.0 x10^3/uL (4.0-11.0) 8.0 x10^3/uL (4.0-11.0) Red Blood Count 3.64 x10^6/uL (3.50-5.40) 3.05 x10^6/uL (3.50-5.40) Hemoglobin 11.2 g/dL (12.0-15.5) 9.4 g/dL (12.0-15.5) Hematocrit 33.2 % (36.0-47.0) 28.2 % (36.0-47.0) Mean Corpuscular Volume 91 fL (79-100) 93 fL (79-100) Mean Corpuscular Hemoglobin 31 pg (25-35) 31 pg (25-35) Mean Corpuscular Hemoglobin Concent 34 g/dL (31-37) 33 g/dL (31-37) Red Cell Distribution Width 13.7 % (11.5-14.5) 14.0 % (11.5-14.5) Platelet Count 213 x10^3/uL (140-400) 171 x10^3/uL (140-400) Neutrophils (%) (Auto) 66 % (31-73) 61 % (31-73) Lymphocytes (%) (Auto) 25 % (24-48) 31 % (24-48) Monocytes (%) (Auto) 7 % (0-9) 7 % (0-9) Eosinophils (%) (Auto) 2 % (0-3) 1 % (0-3) Basophils (%) (Auto) 1 % (0-3) 0 % (0-3) Neutrophils # (Auto) 5.3 x10^3uL (1.8-7.7) 4.9 x10^3uL (1.8-7.7) Lymphocytes # (Auto) 2.0 x10^3/uL (1.0-4.8) 2.5 x10^3/uL (1.0-4.8) Monocytes # (Auto) 0.6 x10^3/uL (0.0-1.1) 0.6 x10^3/uL (0.0-1.1) Eosinophils # (Auto) 0.1 x10^3/uL (0.0-0.7) 0.1 x10^3/uL (0.0-0.7) Basophils # (Auto) 0.0 x10^3/uL (0.0-0.2) 0.0 x10^3/uL (0.0-0.2) Prothrombin Time 14.6 SEC (11.7-14.0) Prothromb Time International Ratio 1.2 (0.8-1.1) Activated Partial Thromboplast Time 27 SEC (24-38) Sodium Level 143 mmol/L (136-145) Potassium Level 4.4 mmol/L (3.5-5.1) Chloride Level 109 mmol/L (98-107) Carbon Dioxide Level 23 mmol/L (21-32) Anion Gap 11 (6-14) Blood Urea Nitrogen 43 mg/dL (7-20) Creatinine 0.8 mg/dL (0.6-1.0) Estimated GFR (Cockcroft-Gault) 71.1 Glucose Level 161 mg/dL (70-99) Calcium Level 8.5 mg/dL (8.5-10.1) Total Bilirubin 0.5 mg/dL (0.2-1.0) Direct Bilirubin 0.1 mg/dL (0.0-0.2) Aspartate Amino Transf (AST/SGOT) 17 U/L (15-37) Alanine Aminotransferase (ALT/SGPT) 26 U/L (14-59) Alkaline Phosphatase 39 U/L (46-116) Total Protein 6.7 g/dL (6.4-8.2) Albumin 3.1 g/dL (3.4-5.0) Stool Occult Blood Positive (NEG) Nasal Screen MRSA (PCR) Negative (Negative) Test 07/28/16 05:05 White Blood Count 7.1 x10^3/uL (4.0-11.0) Red Blood Count 2.98 x10^6/uL (3.50-5.40) Hemoglobin 9.3 g/dL (12.0-15.5) Hematocrit 27.5 % (36.0-47.0) Mean Corpuscular Volume 92 fL (79-100) Mean Corpuscular Hemoglobin 31 pg (25-35) Mean Corpuscular Hemoglobin Concent 34 g/dL (31-37) Red Cell Distribution Width 14.2 % (11.5-14.5) Platelet Count 166 x10^3/uL (140-400) Neutrophils (%) (Auto) 56 % (31-73) Lymphocytes (%) (Auto) 34 % (24-48) Monocytes (%) (Auto) 7 % (0-9) Eosinophils (%) (Auto) 3 % (0-3) Basophils (%) (Auto) 0 % (0-3) Neutrophils # (Auto) 3.9 x10^3uL (1.8-7.7) Lymphocytes # (Auto) 2.4 x10^3/uL (1.0-4.8) Monocytes # (Auto) 0.5 x10^3/uL (0.0-1.1) Eosinophils # (Auto) 0.2 x10^3/uL (0.0-0.7) Basophils # (Auto) 0.0 x10^3/uL (0.0-0.2) Sodium Level 147 mmol/L (136-145) Potassium Level 3.7 mmol/L (3.5-5.1) Chloride Level 112 mmol/L (98-107) Carbon Dioxide Level 26 mmol/L (21-32) Anion Gap 9 (6-14) Blood Urea Nitrogen 23 mg/dL (7-20) Creatinine 0.8 mg/dL (0.6-1.0) Estimated GFR (Cockcroft-Gault) 71.1 Glucose Level 91 mg/dL (70-99) Calcium Level 8.2 mg/dL (8.5-10.1) Laboratory Tests Test 07/28/16 05:05 White Blood Count 7.1 x10^3/uL (4.0-11.0) Red Blood Count 2.98 x10^6/uL (3.50-5.40) Hemoglobin 9.3 g/dL (12.0-15.5) Hematocrit 27.5 % (36.0-47.0) Mean Corpuscular Volume 92 fL (79-100) Mean Corpuscular Hemoglobin 31 pg (25-35) Mean Corpuscular Hemoglobin Concent 34 g/dL (31-37) Red Cell Distribution Width 14.2 % (11.5-14.5) Platelet Count 166 x10^3/uL (140-400) Neutrophils (%) (Auto) 56 % (31-73) Lymphocytes (%) (Auto) 34 % (24-48) Monocytes (%) (Auto) 7 % (0-9) Eosinophils (%) (Auto) 3 % (0-3) Basophils (%) (Auto) 0 % (0-3) Neutrophils # (Auto) 3.9 x10^3uL (1.8-7.7) Lymphocytes # (Auto) 2.4 x10^3/uL (1.0-4.8) Monocytes # (Auto) 0.5 x10^3/uL (0.0-1.1) Eosinophils # (Auto) 0.2 x10^3/uL (0.0-0.7) Basophils # (Auto) 0.0 x10^3/uL (0.0-0.2) Sodium Level 147 mmol/L (136-145) Potassium Level 3.7 mmol/L (3.5-5.1) Chloride Level 112 mmol/L (98-107) Carbon Dioxide Level 26 mmol/L (21-32) Anion Gap 9 (6-14) Blood Urea Nitrogen 23 mg/dL (7-20) Creatinine 0.8 mg/dL (0.6-1.0) Estimated GFR (Cockcroft-Gault) 71.1 Glucose Level 91 mg/dL (70-99) Calcium Level 8.2 mg/dL (8.5-10.1) Medications Current Medications Ondansetron HCl (Zofran) 4 mg PRN Q6HRS PRN IV NAUSEA/VOMITING Last administered on 07/26/16 22:54; Start 07/26/16 at 22:45 Pantoprazole Sodium (Protonix Vial) 40 mg 1X ONCE IVP Last administered on 22:56; Start 07/26/16 at 22:45; Stop 07/26/16 at 22:46; Status DC Pantoprazole Sodium 80 mg/ Sodium Chloride 100 ml @ 10 mls/hr 1X ONCE IV Last administered on 07/26/16 23:03; Start 07/26/16 at 22:45; Stop 07/27/16 at 08:44; Status DC Sodium Chloride 1,000 ml @ 1,000 mls/hr 1X ONCE IV Last administered on 00:12; Start 07/26/16 at 23:30; Stop 07/27/16 at 00:29; Status DC Fentanyl Citrate (Fentanyl 2ml Vial) 50 mcg PRN Q2HR PRN IV PAIN; Start at 00:00; Stop 07/27/16 at 23:59; Status DC Acetaminophen (Tylenol) 650 mg PRN Q4HRS PRN PO FEVER; Start 07/27/16 at 00:00 ; Stop 07/27/16 at 23:59; Status DC Potassium Chloride/Dextrose/ Sod Cl 1,000 ml @ 75 mls/hr 1X ONCE IV Last administered on 07/27/16 00:14; Start 07/27/16 at 00:00; Stop 07/27/16 at 13:19 ; Status DC Pantoprazole Sodium 80 mg/ Sodium Chloride 100 ml @ 10 mls/hr Q10H IV Last administered on 07/28/16 08:49; Start 07/27/16 at 10:00 Carvedilol (Coreg) 6.25 mg BIDWMEALS PO Last administered on 07/28/16 08:50; Start 07/27/16 at 17:00 Furosemide (Lasix) 20 mg DAILY PO Last administered on 07/28/16 08:49; Start 07/28/16 at 09:00 Tramadol HCl (Ultram) 50 mg Q4H PRN PO PAIN; Start 07/27/16 at 11:15 Non-Formulary Medication 2 puff PRN Q6HRS PRN INH SHORTNESS OF BREATH; Start at 11:15; Status UNV Non-Formulary Medication 20 mg PRN DAILY PRN PO SEE COMMENTS; Start 07/27/16 at 11:15; Status UNV Potassium Chloride (Klor-Con) 20 meq DAILYWBKFT PO Last administered on 08:50; Start 07/28/16 at 08:00 Sertraline HCl (Zoloft) 100 mg DAILY PO Last administered on 07/28/16 08:50; Start 07/28/16 at 09:00 Losartan Potassium (Cozaar) 50 mg DAILY PO Last administered on 07/28/16 08:51 ; Start 07/28/16 at 09:00 Acetaminophen (Tylenol) 325 mg PRN Q6HRS PRN PO MILD PAIN / TEMP; Start at 11:15 Hydralazine HCl (Apresoline) 10 mg PRN Q4HRS PRN IVP ELEVATED BP, SEE COMMENTS ; Start 07/27/16 at 11:15 Ondansetron HCl (Zofran) 4 mg PRN Q8HRS PRN IV NAUSEA/VOMITING; Start 07/27/16 at 11:15 Albuterol Sulfate (Ventolin Neb Soln) 2.5 mg PRN Q4HRS PRN NEB SHORTNESS OF BREATH; Start 07/27/16 at 11:15 Propofol 20 ml @ As Directed STK-MED ONCE IV ; Start 07/27/16 at 12:58; Stop at 12:59; Status DC Lidocaine HCl (Lidocaine Pf 2% Vial) 5 ml STK-MED ONCE .ROUTE ; Start 07/27/16 at 12:58; Stop 07/27/16 at 12:59; Status DC Barium Sulfate (Polibar Acb) 397 gm 1X ONCE OR Last administered on 07/27/16 15:00; Start 07/27/16 at 15:00; Stop 07/27/16 at 15:01; Status DC Barium Sulfate (Liquid E-Z Paque) 355 ml 1X ONCE PO Last administered on 15:35; Start 07/27/16 at 15:00; Stop 07/27/16 at 15:01; Status DC Simethicone/ Sodium Bicarb/ Citric Ac (E-Z-Gas) 1 packet 1X ONCE PO Last administered on 07/27/16 15:36; Start 07/27/16 at 15:00; Stop 07/27/16 at 15:01 ; Status DC Iohexol (Omnipaque 240 Mg/ml) 30 ml 1X ONCE PO ; Start 07/28/16 at 10:00; Stop 07/28/16 at 10:01; Status DC Iohexol (Omnipaque 300 Mg/ml) 75 ml 1X ONCE IV ; Start 07/28/16 at 10:00; Stop 07/28/16 at 10:01; Status DC Info (Do NOT chart on this entry -- for MONITORING) 1 each PRN DAILY PRN MC SEE COMMENTS; Start 07/28/16 at 10:00; Stop 07/30/16 at 09:59 Active Scripts Active Reported Tramadol Hcl 50 Mg Tablet 50 Mg PO Q4H PRN Vitamin D2 (Ergocalciferol (Vitamin D2)) 50,000 Unit Capsule 50,000 Unit PO WEEKLY Omeprazole 20 Mg Capsule.dr 20 Mg PO PRN DAILY PRN Ventolin Hfa Inhaler (Albuterol Sulfate) 18 Gm Hfa.aer.ad 2 Puff INH PRN Q6HRS PRN Potassium Chloride 20 Meq Tablet.er 20 Meq PO DAILY Carvedilol 6.25 Mg Tablet 6.25 Mg PO BIDWMEALS Furosemide 20 Mg Tablet 20 Mg PO DAILY [multivitamin] 1 Tab PO DAILY Aspir 81 (Aspirin) 81 Mg Tablet.dr 1 Tab PO DAILY Zoloft (Sertraline Hcl) 100 Mg Tablet 1 Tab PO DAILY [losartan] 100 Mg PO DAILY Vitals/I & O Vital Sign - Last 24 Hours 07/27/16 07/27/16 07/27/16 07/27/16 11:45 13:13 13:30 14:00 Temp 98.7 99.0 98.7 99.0 Pulse 97 77 74 75 Resp 20 14 B/P (MAP) 126/66 146/64 138/72 (94) Pulse Ox 97 99 97 O2 Delivery Room Air Room Air O2 Flow Rate 5 2 07/27/16 07/27/16 07/27/16 07/27/16 14:00 15:00 15:30 16:34 Temp 99.0 99.0 Pulse 74 74 Resp 16 B/P (MAP) 132/74 (93) 132/74 Pulse Ox 97 98 O2 Delivery Room Air Room Air Room Air 07/27/16 07/27/16 07/27/16 07/27/16 17:35 19:00 19:50 23:00 Temp 97.5 98.4 98.7 97.5 98.4 98.7 Pulse 78 89 79 Resp 20 18 18 B/P (MAP) 126/70 (88) 144/71 (95) 142/73 (96) Pulse Ox 95 96 95 O2 Delivery Room Air Room Air Room Air Room Air 07/28/16 07/28/16 07/28/16 07/28/16 03:00 07:00 08:50 08:51 Temp 97.3 98.1 97.3 98.1 Pulse 101 70 70 70 Resp 18 20 B/P (MAP) 141/69 (93) 120/64 (82) 120/64 120/64 Pulse Ox 91 96 O2 Delivery Room Air Room Air Intake and Output 07/27/16 07/27/16 07/28/16 14:59 22:59 06:59 Intake Total 0 ml Balance 0 ml SABINE BRISCOE MD July 28, 2016 11:23
[2016-07-28 15:00] VITALS: BP 117/56
--- NOTE | 2016-07-28 15:15 | PDOC ---
PROGRESS NOTES Subjective Subjective denies pain, states no further bleeding, no vomiting, hungry Objective Objective Vital Signs Date Time Temp Pulse Resp B/P (MAP) Pulse Ox O2 Delivery O2 Flow Rate FiO2 07/28/16 11:00 98.1 76 20 123/76 (92) 97 98.1 07/28/16 07:00 Room Air 07/27/16 13:30 2 Intake and Output 07/28/16 07:00 Intake Total 0 ml Balance 0 ml Intake Oral 0 ml # Voids 2 # Bowel Movements 2 Physical Exam Abdomen: Soft (morbidly obese), No tenderness Heart: Regular rate Extremities: No clubbing, No cyanosis General: Alert, Oriented X3 HEENT: Atraumatic Lungs: Clear to auscultation Assessment Assessment Problems Medical Problems: (1) GI bleed Status: Acute Plan Plan of Care Will get CT scan abdomen/pelvic to further clarify gastric mass; suspect will need resection, if remains stable can do electively in near future Comment Review of Relevant I have reviewed the following items hans (where applicable) has been applied. Labs Laboratory Tests Test 07/26/16 22:20 07/26/16 22:45 07/27/16 02:00 07/27/16 08:05 White Blood Count 8.0 x10^3/uL (4.0-11.0) 8.0 x10^3/uL (4.0-11.0) Red Blood Count 3.64 x10^6/uL (3.50-5.40) 3.05 x10^6/uL (3.50-5.40) Hemoglobin 11.2 g/dL (12.0-15.5) 9.4 g/dL (12.0-15.5) Hematocrit 33.2 % (36.0-47.0) 28.2 % (36.0-47.0) Mean Corpuscular Volume 91 fL (79-100) 93 fL (79-100) Mean Corpuscular Hemoglobin 31 pg (25-35) 31 pg (25-35) Mean Corpuscular Hemoglobin Concent 34 g/dL (31-37) 33 g/dL (31-37) Red Cell Distribution Width 13.7 % (11.5-14.5) 14.0 % (11.5-14.5) Platelet Count 213 x10^3/uL (140-400) 171 x10^3/uL (140-400) Neutrophils (%) (Auto) 66 % (31-73) 61 % (31-73) Lymphocytes (%) (Auto) 25 % (24-48) 31 % (24-48) Monocytes (%) (Auto) 7 % (0-9) 7 % (0-9) Eosinophils (%) (Auto) 2 % (0-3) 1 % (0-3) Basophils (%) (Auto) 1 % (0-3) 0 % (0-3) Neutrophils # (Auto) 5.3 x10^3uL (1.8-7.7) 4.9 x10^3uL (1.8-7.7) Lymphocytes # (Auto) 2.0 x10^3/uL (1.0-4.8) 2.5 x10^3/uL (1.0-4.8) Monocytes # (Auto) 0.6 x10^3/uL (0.0-1.1) 0.6 x10^3/uL (0.0-1.1) Eosinophils # (Auto) 0.1 x10^3/uL (0.0-0.7) 0.1 x10^3/uL (0.0-0.7) Basophils # (Auto) 0.0 x10^3/uL (0.0-0.2) 0.0 x10^3/uL (0.0-0.2) Prothrombin Time 14.6 SEC (11.7-14.0) Prothromb Time International Ratio 1.2 (0.8-1.1) Activated Partial Thromboplast Time 27 SEC (24-38) Sodium Level 143 mmol/L (136-145) Potassium Level 4.4 mmol/L (3.5-5.1) Chloride Level 109 mmol/L (98-107) Carbon Dioxide Level 23 mmol/L (21-32) Anion Gap 11 (6-14) Blood Urea Nitrogen 43 mg/dL (7-20) Creatinine 0.8 mg/dL (0.6-1.0) Estimated GFR (Cockcroft-Gault) 71.1 Glucose Level 161 mg/dL (70-99) Calcium Level 8.5 mg/dL (8.5-10.1) Total Bilirubin 0.5 mg/dL (0.2-1.0) Direct Bilirubin 0.1 mg/dL (0.0-0.2) Aspartate Amino Transf (AST/SGOT) 17 U/L (15-37) Alanine Aminotransferase (ALT/SGPT) 26 U/L (14-59) Alkaline Phosphatase 39 U/L (46-116) Total Protein 6.7 g/dL (6.4-8.2) Albumin 3.1 g/dL (3.4-5.0) Stool Occult Blood Positive (NEG) Nasal Screen MRSA (PCR) Negative (Negative) Test 07/28/16 05:05 White Blood Count 7.1 x10^3/uL (4.0-11.0) Red Blood Count 2.98 x10^6/uL (3.50-5.40) Hemoglobin 9.3 g/dL (12.0-15.5) Hematocrit 27.5 % (36.0-47.0) Mean Corpuscular Volume 92 fL (79-100) Mean Corpuscular Hemoglobin 31 pg (25-35) Mean Corpuscular Hemoglobin Concent 34 g/dL (31-37) Red Cell Distribution Width 14.2 % (11.5-14.5) Platelet Count 166 x10^3/uL (140-400) Neutrophils (%) (Auto) 56 % (31-73) Lymphocytes (%) (Auto) 34 % (24-48) Monocytes (%) (Auto) 7 % (0-9) Eosinophils (%) (Auto) 3 % (0-3) Basophils (%) (Auto) 0 % (0-3) Neutrophils # (Auto) 3.9 x10^3uL (1.8-7.7) Lymphocytes # (Auto) 2.4 x10^3/uL (1.0-4.8) Monocytes # (Auto) 0.5 x10^3/uL (0.0-1.1) Eosinophils # (Auto) 0.2 x10^3/uL (0.0-0.7) Basophils # (Auto) 0.0 x10^3/uL (0.0-0.2) Sodium Level 147 mmol/L (136-145) Potassium Level 3.7 mmol/L (3.5-5.1) Chloride Level 112 mmol/L (98-107) Carbon Dioxide Level 26 mmol/L (21-32) Anion Gap 9 (6-14) Blood Urea Nitrogen 23 mg/dL (7-20) Creatinine 0.8 mg/dL (0.6-1.0) Estimated GFR (Cockcroft-Gault) 71.1 Glucose Level 91 mg/dL (70-99) Calcium Level 8.2 mg/dL (8.5-10.1) Laboratory Tests Test 07/28/16 05:05 White Blood Count 7.1 x10^3/uL (4.0-11.0) Red Blood Count 2.98 x10^6/uL (3.50-5.40) Hemoglobin 9.3 g/dL (12.0-15.5) Hematocrit 27.5 % (36.0-47.0) Mean Corpuscular Volume 92 fL (79-100) Mean Corpuscular Hemoglobin 31 pg (25-35) Mean Corpuscular Hemoglobin Concent 34 g/dL (31-37) Red Cell Distribution Width 14.2 % (11.5-14.5) Platelet Count 166 x10^3/uL (140-400) Neutrophils (%) (Auto) 56 % (31-73) Lymphocytes (%) (Auto) 34 % (24-48) Monocytes (%) (Auto) 7 % (0-9) Eosinophils (%) (Auto) 3 % (0-3) Basophils (%) (Auto) 0 % (0-3) Neutrophils # (Auto) 3.9 x10^3uL (1.8-7.7) Lymphocytes # (Auto) 2.4 x10^3/uL (1.0-4.8) Monocytes # (Auto) 0.5 x10^3/uL (0.0-1.1) Eosinophils # (Auto) 0.2 x10^3/uL (0.0-0.7) Basophils # (Auto) 0.0 x10^3/uL (0.0-0.2) Sodium Level 147 mmol/L (136-145) Potassium Level 3.7 mmol/L (3.5-5.1) Chloride Level 112 mmol/L (98-107) Carbon Dioxide Level 26 mmol/L (21-32) Anion Gap 9 (6-14) Blood Urea Nitrogen 23 mg/dL (7-20) Creatinine 0.8 mg/dL (0.6-1.0) Estimated GFR (Cockcroft-Gault) 71.1 Glucose Level 91 mg/dL (70-99) Calcium Level 8.2 mg/dL (8.5-10.1) Medications Current Medications Ondansetron HCl (Zofran) 4 mg PRN Q6HRS PRN IV NAUSEA/VOMITING Last administered on 07/26/16 22:54; Start 07/26/16 at 22:45 Pantoprazole Sodium (Protonix Vial) 40 mg 1X ONCE IVP Last administered on 22:56; Start 07/26/16 at 22:45; Stop 07/26/16 at 22:46; Status DC Pantoprazole Sodium 80 mg/ Sodium Chloride 100 ml @ 10 mls/hr 1X ONCE IV Last administered on 07/26/16 23:03; Start 07/26/16 at 22:45; Stop 07/27/16 at 08:44; Status DC Sodium Chloride 1,000 ml @ 1,000 mls/hr 1X ONCE IV Last administered on 00:12; Start 07/26/16 at 23:30; Stop 07/27/16 at 00:29; Status DC Fentanyl Citrate (Fentanyl 2ml Vial) 50 mcg PRN Q2HR PRN IV PAIN; Start at 00:00; Stop 07/27/16 at 23:59; Status DC Acetaminophen (Tylenol) 650 mg PRN Q4HRS PRN PO FEVER; Start 07/27/16 at 00:00 ; Stop 07/27/16 at 23:59; Status DC Potassium Chloride/Dextrose/ Sod Cl 1,000 ml @ 75 mls/hr 1X ONCE IV Last administered on 07/27/16 00:14; Start 07/27/16 at 00:00; Stop 07/27/16 at 13:19 ; Status DC Pantoprazole Sodium 80 mg/ Sodium Chloride 100 ml @ 10 mls/hr Q10H IV Last administered on 07/28/16 08:49; Start 07/27/16 at 10:00 Carvedilol (Coreg) 6.25 mg BIDWMEALS PO Last administered on 07/28/16 08:50; Start 07/27/16 at 17:00 Furosemide (Lasix) 20 mg DAILY PO Last administered on 07/28/16 08:49; Start 07/28/16 at 09:00 Tramadol HCl (Ultram) 50 mg Q4H PRN PO PAIN; Start 07/27/16 at 11:15 Non-Formulary Medication 2 puff PRN Q6HRS PRN INH SHORTNESS OF BREATH; Start at 11:15; Status UNV Non-Formulary Medication 20 mg PRN DAILY PRN PO SEE COMMENTS; Start 07/27/16 at 11:15; Status UNV Potassium Chloride (Klor-Con) 20 meq DAILYWBKFT PO Last administered on 08:50; Start 07/28/16 at 08:00 Sertraline HCl (Zoloft) 100 mg DAILY PO Last administered on 07/28/16 08:50; Start 07/28/16 at 09:00 Losartan Potassium (Cozaar) 50 mg DAILY PO Last administered on 07/28/16 08:51 ; Start 07/28/16 at 09:00 Acetaminophen (Tylenol) 325 mg PRN Q6HRS PRN PO MILD PAIN / TEMP; Start at 11:15 Hydralazine HCl (Apresoline) 10 mg PRN Q4HRS PRN IVP ELEVATED BP, SEE COMMENTS ; Start 07/27/16 at 11:15 Ondansetron HCl (Zofran) 4 mg PRN Q8HRS PRN IV NAUSEA/VOMITING; Start 07/27/16 at 11:15 Albuterol Sulfate (Ventolin Neb Soln) 2.5 mg PRN Q4HRS PRN NEB SHORTNESS OF BREATH; Start 07/27/16 at 11:15 Propofol 20 ml @ As Directed STK-MED ONCE IV ; Start 07/27/16 at 12:58; Stop at 12:59; Status DC Lidocaine HCl (Lidocaine Pf 2% Vial) 5 ml STK-MED ONCE .ROUTE ; Start 07/27/16 at 12:58; Stop 07/27/16 at 12:59; Status DC Barium Sulfate (Polibar Acb) 397 gm 1X ONCE [place] Last administered on 07/27/16 15:00; Start 07/27/16 at 15:00; Stop 07/27/16 at 15:01; Status DC Barium Sulfate (Liquid E-Z Paque) 355 ml 1X ONCE PO Last administered on 15:35; Start 07/27/16 at 15:00; Stop 07/27/16 at 15:01; Status DC Simethicone/ Sodium Bicarb/ Citric Ac (E-Z-Gas) 1 packet 1X ONCE PO Last administered on 07/27/16 15:36; Start 07/27/16 at 15:00; Stop 07/27/16 at 15:01 ; Status DC Iohexol (Omnipaque 240 Mg/ml) 30 ml 1X ONCE PO Last administered on 07/28/16 11:36; Start 07/28/16 at 10:00; Stop 07/28/16 at 10:01; Status DC Iohexol (Omnipaque 300 Mg/ml) 75 ml 1X ONCE IV Last administered on 07/28/16 11:36; Start 07/28/16 at 10:00; Stop 07/28/16 at 10:01; Status DC Info (Do NOT chart on this entry -- for MONITORING) 1 each PRN DAILY PRN MC SEE COMMENTS; Start 07/28/16 at 10:00; Stop 07/30/16 at 09:59 Active Scripts Active Reported Tramadol Hcl 50 Mg Tablet 50 Mg PO Q4H PRN Vitamin D2 (Ergocalciferol (Vitamin D2)) 50,000 Unit Capsule 50,000 Unit PO WEEKLY Omeprazole 20 Mg Capsule. 20 Mg PO PRN DAILY PRN Ventolin Hfa Inhaler (Albuterol Sulfate) 18 Gm Hfa.aer.ad 2 Puff INH PRN Q6HRS PRN Potassium Chloride 20 Meq Tablet.er 20 Meq PO DAILY Carvedilol 6.25 Mg Tablet 6.25 Mg PO BIDWMEALS Furosemide 20 Mg Tablet 20 Mg PO DAILY [multivitamin] 1 Tab PO DAILY Aspir 81 (Aspirin) 81 Mg Tablet. 1 Tab PO DAILY Zoloft (Sertraline Hcl) 100 Mg Tablet 1 Tab PO DAILY [losartan] 100 Mg PO DAILY Vitals/I & O Vital Sign - Last 24 Hours 07/27/16 07/27/16 07/27/16 07/27/16 15:30 16:34 17:35 19:00 Temp 97.5 98.4 97.5 98.4 Pulse 74 78 89 Resp 20 18 B/P (MAP) 132/74 126/70 (88) 144/71 (95) Pulse Ox 98 95 96 O2 Delivery Room Air Room Air Room Air 07/27/16 07/27/16 07/28/16 07/28/16 19:50 23:00 03:00 07:00 Temp 98.7 97.3 98.1 98.7 97.3 98.1 Pulse 79 101 70 Resp 18 18 20 B/P (MAP) 142/73 (96) 141/69 (93) 120/64 (82) Pulse Ox 95 91 96 O2 Delivery Room Air Room Air Room Air Room Air 07/28/16 07/28/16 07/28/16 08:50 08:51 11:00 Temp 98.1 98.1 Pulse 70 70 76 Resp 20 B/P (MAP) 120/64 120/64 123/76 (92) Pulse Ox 97 Intake and Output 07/27/16 07/27/16 07/28/16 15:00 23:00 07:00 Intake Total 0 ml Balance 0 ml DIGNA BERNABE MD July 28, 2016 15:15
[2016-07-28 19:00] VITALS: BP 106/52
[2016-07-28 23:00] VITALS: BP 109/59
[2016-07-29 03:00] VITALS: BP 127/63
[2016-07-29 05:26] LABS: BASO % 0 % (0-3); EOS % 4 % (0-3); HEMATOCRIT 25.3 % (36.0-47.0); HEMOGLOBIN 8.9 g/dL (12.0-15.5); LYMPH # 2.3 x10^3/uL (1.0-4.8); LYMPH % 28 % (24-48); MEAN CORPUSCULAR HEMOGLOBIN 32 pg (25-35); MEAN CORPUSCULAR HGB CONC 35 g/dL (31-37); MEAN CORPUSCULAR VOLUME 91 fL (79-100); MONO % 7 % (0-9); NEUT % 61 % (31-73); PLATELET COUNT 172 x10^3/uL (140-400); RED BLOOD COUNT 2.77 x10^6/uL (3.50-5.40); RED CELL DISTRIBUTION WIDTH 13.8 % (11.5-14.5); WHITE BLOOD COUNT 8.3 x10^3/uL (4.0-11.0)
[2016-07-29 05:42] LABS: CALCIUM 8.2 mg/dL (8.5-10.1); CREATININE 0.9 mg/dL (0.6-1.0); GFR 62.1; POTASSIUM 3.6 mmol/L (3.5-5.1)
[2016-07-29 07:00] VITALS: BP 125/68
[2016-07-29] MEDS: POTASSIUM CHLORIDE 20 MEQ TABLET.ER. PO SCH (08:00)
[2016-07-29] MEDS: CARVEDILOL 6.25 MG TABLET. PO SCH (08:00)
[2016-07-29 08:52] VITALS: BP 125/68
[2016-07-29] MEDS: FUROSEMIDE 20 MG TABLET PO SCH (08:52)
[2016-07-29] MEDS: LOSARTAN POTASSIUM 50 MG TABLET. PO SCH (08:52)
[2016-07-29] MEDS: SERTRALINE 50 MG TABLET. PO SCH (08:54)
--- NOTE | 2016-07-29 09:17 | PDOC ---
PROGRESS NOTES Subjective Subjective doing well, kaela po, no further evidence of bleeding Objective Objective Vital Signs Date Time Temp Pulse Resp B/P (MAP) Pulse Ox O2 Delivery O2 Flow Rate FiO2 07/29/16 08:52 76 125/68 07/29/16 07:00 97.5 20 96 Room Air 97.5 07/27/16 13:30 2 Intake and Output 07/29/16 07:00 Intake Total 500 ml Balance 500 ml Intake Oral 500 ml # Voids 3 # Bowel Movements 1 Physical Exam Abdomen: Soft, No tenderness Heart: Regular rate Extremities: No clubbing, No cyanosis General: Alert HEENT: Atraumatic Lungs: Clear to auscultation Assessment Assessment Problems Medical Problems: (1) GI bleed Status: Acute Plan Plan of Care Unable to do CT yesterday due to barium, will try again today. Regardless should be ok to discharge today (either after CT or if unable to do can arrange as outpt). FU with me in office, Thanks! Comment Review of Relevant I have reviewed the following items hans (where applicable) has been applied. Labs Laboratory Tests Test 07/28/16 05:05 07/29/16 04:25 White Blood Count 7.1 x10^3/uL (4.0-11.0) 8.3 x10^3/uL (4.0-11.0) Red Blood Count 2.98 x10^6/uL (3.50-5.40) 2.77 x10^6/uL (3.50-5.40) Hemoglobin 9.3 g/dL (12.0-15.5) 8.9 g/dL (12.0-15.5) Hematocrit 27.5 % (36.0-47.0) 25.3 % (36.0-47.0) Mean Corpuscular Volume 92 fL (79-100) 91 fL (79-100) Mean Corpuscular Hemoglobin 31 pg (25-35) 32 pg (25-35) Mean Corpuscular Hemoglobin Concent 34 g/dL (31-37) 35 g/dL (31-37) Red Cell Distribution Width 14.2 % (11.5-14.5) 13.8 % (11.5-14.5) Platelet Count 166 x10^3/uL (140-400) 172 x10^3/uL (140-400) Neutrophils (%) (Auto) 56 % (31-73) 61 % (31-73) Lymphocytes (%) (Auto) 34 % (24-48) 28 % (24-48) Monocytes (%) (Auto) 7 % (0-9) 7 % (0-9) Eosinophils (%) (Auto) 3 % (0-3) 4 % (0-3) Basophils (%) (Auto) 0 % (0-3) 0 % (0-3) Neutrophils # (Auto) 3.9 x10^3uL (1.8-7.7) 5.0 x10^3uL (1.8-7.7) Lymphocytes # (Auto) 2.4 x10^3/uL (1.0-4.8) 2.3 x10^3/uL (1.0-4.8) Monocytes # (Auto) 0.5 x10^3/uL (0.0-1.1) 0.6 x10^3/uL (0.0-1.1) Eosinophils # (Auto) 0.2 x10^3/uL (0.0-0.7) 0.3 x10^3/uL (0.0-0.7) Basophils # (Auto) 0.0 x10^3/uL (0.0-0.2) 0.0 x10^3/uL (0.0-0.2) Sodium Level 147 mmol/L (136-145) 145 mmol/L (136-145) Potassium Level 3.7 mmol/L (3.5-5.1) 3.6 mmol/L (3.5-5.1) Chloride Level 112 mmol/L (98-107) 110 mmol/L (98-107) Carbon Dioxide Level 26 mmol/L (21-32) 26 mmol/L (21-32) Anion Gap 9 (6-14) 9 (6-14) Blood Urea Nitrogen 23 mg/dL (7-20) 23 mg/dL (7-20) Creatinine 0.8 mg/dL (0.6-1.0) 0.9 mg/dL (0.6-1.0) Estimated GFR (Cockcroft-Gault) 71.1 62.1 Glucose Level 91 mg/dL (70-99) 101 mg/dL (70-99) Calcium Level 8.2 mg/dL (8.5-10.1) 8.2 mg/dL (8.5-10.1) Laboratory Tests Test 07/29/16 04:25 White Blood Count 8.3 x10^3/uL (4.0-11.0) Red Blood Count 2.77 x10^6/uL (3.50-5.40) Hemoglobin 8.9 g/dL (12.0-15.5) Hematocrit 25.3 % (36.0-47.0) Mean Corpuscular Volume 91 fL (79-100) Mean Corpuscular Hemoglobin 32 pg (25-35) Mean Corpuscular Hemoglobin Concent 35 g/dL (31-37) Red Cell Distribution Width 13.8 % (11.5-14.5) Platelet Count 172 x10^3/uL (140-400) Neutrophils (%) (Auto) 61 % (31-73) Lymphocytes (%) (Auto) 28 % (24-48) Monocytes (%) (Auto) 7 % (0-9) Eosinophils (%) (Auto) 4 % (0-3) Basophils (%) (Auto) 0 % (0-3) Neutrophils # (Auto) 5.0 x10^3uL (1.8-7.7) Lymphocytes # (Auto) 2.3 x10^3/uL (1.0-4.8) Monocytes # (Auto) 0.6 x10^3/uL (0.0-1.1) Eosinophils # (Auto) 0.3 x10^3/uL (0.0-0.7) Basophils # (Auto) 0.0 x10^3/uL (0.0-0.2) Sodium Level 145 mmol/L (136-145) Potassium Level 3.6 mmol/L (3.5-5.1) Chloride Level 110 mmol/L (98-107) Carbon Dioxide Level 26 mmol/L (21-32) Anion Gap 9 (6-14) Blood Urea Nitrogen 23 mg/dL (7-20) Creatinine 0.9 mg/dL (0.6-1.0) Estimated GFR (Cockcroft-Gault) 62.1 Glucose Level 101 mg/dL (70-99) Calcium Level 8.2 mg/dL (8.5-10.1) Medications Current Medications Ondansetron HCl (Zofran) 4 mg PRN Q6HRS PRN IV NAUSEA/VOMITING Last administered on 07/26/16 22:54; Start 07/26/16 at 22:45 Pantoprazole Sodium (Protonix Vial) 40 mg 1X ONCE IVP Last administered on 22:56; Start 07/26/16 at 22:45; Stop 07/26/16 at 22:46; Status DC Pantoprazole Sodium 80 mg/ Sodium Chloride 100 ml @ 10 mls/hr 1X ONCE IV Last administered on 07/26/16 23:03; Start 07/26/16 at 22:45; Stop 07/27/16 at 08:44; Status DC Sodium Chloride 1,000 ml @ 1,000 mls/hr 1X ONCE IV Last administered on 00:12; Start 07/26/16 at 23:30; Stop 07/27/16 at 00:29; Status DC Fentanyl Citrate (Fentanyl 2ml Vial) 50 mcg PRN Q2HR PRN IV PAIN; Start at 00:00; Stop 07/27/16 at 23:59; Status DC Acetaminophen (Tylenol) 650 mg PRN Q4HRS PRN PO FEVER; Start 07/27/16 at 00:00 ; Stop 07/27/16 at 23:59; Status DC Potassium Chloride/Dextrose/ Sod Cl 1,000 ml @ 75 mls/hr 1X ONCE IV Last administered on 07/27/16 00:14; Start 07/27/16 at 00:00; Stop 07/27/16 at 13:19 ; Status DC Pantoprazole Sodium 80 mg/ Sodium Chloride 100 ml @ 10 mls/hr Q10H IV Last administered on 07/28/16 22:30; Start 07/27/16 at 10:00 Carvedilol (Coreg) 6.25 mg BIDWMEALS PO Last administered on 07/28/16 16:42; Start 07/27/16 at 17:00 Furosemide (Lasix) 20 mg DAILY PO Last administered on 07/28/16 08:49; Start 07/28/16 at 09:00 Tramadol HCl (Ultram) 50 mg Q4H PRN PO PAIN; Start 07/27/16 at 11:15 Non-Formulary Medication 2 puff PRN Q6HRS PRN INH SHORTNESS OF BREATH; Start at 11:15; Status UNV Non-Formulary Medication 20 mg PRN DAILY PRN PO SEE COMMENTS; Start 07/27/16 at 11:15; Status UNV Potassium Chloride (Klor-Con) 20 meq DAILYWBKFT PO Last administered on 08:50; Start 07/28/16 at 08:00 Sertraline HCl (Zoloft) 100 mg DAILY PO Last administered on 07/28/16 08:50; Start 07/28/16 at 09:00 Losartan Potassium (Cozaar) 50 mg DAILY PO Last administered on 07/28/16 08:51 ; Start 07/28/16 at 09:00 Acetaminophen (Tylenol) 325 mg PRN Q6HRS PRN PO MILD PAIN / TEMP; Start at 11:15 Hydralazine HCl (Apresoline) 10 mg PRN Q4HRS PRN IVP ELEVATED BP, SEE COMMENTS ; Start 07/27/16 at 11:15 Ondansetron HCl (Zofran) 4 mg PRN Q8HRS PRN IV NAUSEA/VOMITING; Start 07/27/16 at 11:15 Albuterol Sulfate (Ventolin Neb Soln) 2.5 mg PRN Q4HRS PRN NEB SHORTNESS OF BREATH; Start 07/27/16 at 11:15 Propofol 20 ml @ As Directed STK-MED ONCE IV ; Start 07/27/16 at 12:58; Stop at 12:59; Status DC Lidocaine HCl (Lidocaine Pf 2% Vial) 5 ml STK-MED ONCE .ROUTE ; Start 07/27/16 at 12:58; Stop 07/27/16 at 12:59; Status DC Barium Sulfate (Polibar Acb) 397 gm 1X ONCE LA Last administered on 07/27/16 15:00; Start 07/27/16 at 15:00; Stop 07/27/16 at 15:01; Status DC Barium Sulfate (Liquid E-Z Paque) 355 ml 1X ONCE PO Last administered on 15:35; Start 07/27/16 at 15:00; Stop 07/27/16 at 15:01; Status DC Simethicone/ Sodium Bicarb/ Citric Ac (E-Z-Gas) 1 packet 1X ONCE PO Last administered on 07/27/16 15:36; Start 07/27/16 at 15:00; Stop 07/27/16 at 15:01 ; Status DC Iohexol (Omnipaque 240 Mg/ml) 30 ml 1X ONCE PO Last administered on 07/28/16 11:36; Start 07/28/16 at 10:00; Stop 07/28/16 at 10:01; Status DC Iohexol (Omnipaque 300 Mg/ml) 75 ml 1X ONCE IV Last administered on 07/28/16 11:36; Start 07/28/16 at 10:00; Stop 07/28/16 at 10:01; Status DC Info (Do NOT chart on this entry -- for MONITORING) 1 each PRN DAILY PRN MC SEE COMMENTS; Start 07/28/16 at 10:00; Stop 07/30/16 at 09:59 Active Scripts Active Reported Tramadol Hcl 50 Mg Tablet 50 Mg PO Q4H PRN Vitamin D2 (Ergocalciferol (Vitamin D2)) 50,000 Unit Capsule 50,000 Unit PO WEEKLY Omeprazole 20 Mg Capsule.dr 20 Mg PO PRN DAILY PRN Ventolin Hfa Inhaler (Albuterol Sulfate) 18 Gm Hfa.aer.ad 2 Puff INH PRN Q6HRS PRN Potassium Chloride 20 Meq Tablet.er 20 Meq PO DAILY Carvedilol 6.25 Mg Tablet 6.25 Mg PO BIDWMEALS Furosemide 20 Mg Tablet 20 Mg PO DAILY [multivitamin] 1 Tab PO DAILY Aspir 81 (Aspirin) 81 Mg Tablet. 1 Tab PO DAILY Zoloft (Sertraline Hcl) 100 Mg Tablet 1 Tab PO DAILY [losartan] 100 Mg PO DAILY Vitals/I & O Vital Sign - Last 24 Hours 07/28/16 07/28/16 07/28/16 07/28/16 11:00 15:00 16:42 19:00 Temp 98.1 98.1 97.7 98.1 98.1 97.7 Pulse 76 77 77 85 Resp 20 20 18 B/P (MAP) 123/76 (92) 117/56 (76) 117/56 106/52 (70) Pulse Ox 97 95 96 O2 Delivery Room Air Room Air 5/24/17 5/24/17 5/25/17 5/25/17 20:00 23:00 03:00 07:00 Temp 98.6 98.3 97.5 98.6 98.3 97.5 Pulse 76 76 76 Resp 16 16 20 B/P (MAP) 109/59 (76) 127/63 (84) 125/68 (87) Pulse Ox 95 98 96 O2 Delivery Room Air Room Air Room Air Room Air 07/29/16 07/29/16 08:00 08:52 Pulse 76 76 B/P (MAP) 125/68 125/68 Intake and Output 07/28/16 07/28/16 07/29/16 15:00 23:00 07:00 Intake Total 500 ml 0 ml Balance 500 ml 0 ml DIGNA BERNABE MD July 29, 2016 09:17
--- NOTE | 2016-07-29 09:56 | PDOC ---
Subjective: Subjective: Feeling better. Says ate regular food twice yesterday. No bleeding. Awaiting CT, then DC. Objective: Objective: Reviewed Dr. Rodriguez's note. Vital Signs: Vital Signs Date Time Temp Pulse Resp B/P (MAP) Pulse Ox O2 Delivery O2 Flow Rate FiO2 07/29/16 08:52 76 125/68 07/29/16 07:00 97.5 20 96 Room Air 97.5 Labs: Laboratory Tests Test 07/29/16 04:25 White Blood Count 8.3 x10^3/uL Red Blood Count 2.77 x10^6/uL Hemoglobin 8.9 g/dL Hematocrit 25.3 % Mean Corpuscular Volume 91 fL Mean Corpuscular Hemoglobin 32 pg Mean Corpuscular Hemoglobin Concent 35 g/dL Red Cell Distribution Width 13.8 % Platelet Count 172 x10^3/uL Neutrophils (%) (Auto) 61 % Lymphocytes (%) (Auto) 28 % Monocytes (%) (Auto) 7 % Eosinophils (%) (Auto) 4 % Basophils (%) (Auto) 0 % Neutrophils # (Auto) 5.0 x10^3uL Lymphocytes # (Auto) 2.3 x10^3/uL Monocytes # (Auto) 0.6 x10^3/uL Eosinophils # (Auto) 0.3 x10^3/uL Basophils # (Auto) 0.0 x10^3/uL Sodium Level 145 mmol/L Potassium Level 3.6 mmol/L Chloride Level 110 mmol/L Carbon Dioxide Level 26 mmol/L Anion Gap 9 Blood Urea Nitrogen 23 mg/dL Creatinine 0.9 mg/dL Estimated GFR (Cockcroft-Gault) 62.1 Glucose Level 101 mg/dL Calcium Level 8.2 mg/dL PE: GEN: NAD, sitting on edge of bed LUNGS: CTAB HEART: RRR ABD: S/ND/NT, obese NEURO/PSYCH: A & O 3 A/P: Hematemesis, hematochezia/melena - resolved -Hgb stable -EGD w/ ulcerated lipoma -s/p VBG with staple line breakdown -- Trying for CT again today, then possible DC w/ outpt surgical follow-up. MAXX WALTER July 29, 2016 09:56
[2016-07-29] MEDS: BISACODYL 10 MG SUPP.RECT. PR ONE ×2 (10:30→10:41)
[2016-07-29] MEDS: MAGNESIUM CITRATE 296 ML SOLUTION. PO ONE ×2 (10:30→10:41)
[2016-07-29] MEDS: PANTOPRAZOLE SODIUM IV 80 MG in IV NORMAL SALINE 100ML 100 ML IV SCH (10:36)
--- NOTE | 2016-07-29 13:11 | PDOC ---
PROGRESS NOTES Chief Complaint Chief Complaint 1. GI bleed 2. Hypertension 3. GERD 4. Depression 5. Breast cancer. 6. Appendectomy 7. Cholecystectomy 8. Tubal ligation 9. Lap band 10. Bilateral mastectomy 11. Left lumpectomy 12. Left breast biopsy 13. Multiple feet surgeries 14. Bilateral knee replacements 15. Cataract extraction History of Present Illness History of Present Illness Patient this am in in NAD. Patient wants to be D/C bc having problems with IV for CT- received GI series on 07/27/16. Patient says she will return another day to get CT. Patient understands plan of action. Vitals Vitals Vital Signs Date Time Temp Pulse Resp B/P (MAP) Pulse Ox O2 Delivery O2 Flow Rate FiO2 07/29/16 08:52 76 125/68 07/29/16 07:35 Room Air 07/29/16 07:00 97.5 20 96 97.5 Physical Exam General: Alert, Oriented X3, Cooperative Heart: Regular rate, Normal S1, Normal S2 Lungs: Clear Abdomen: Soft, No tenderness Extremities: No clubbing, No cyanosis Skin: No rashes, No breakdown Labs LABS Laboratory Tests Test 07/29/16 04:25 White Blood Count 8.3 x10^3/uL (4.0-11.0) Red Blood Count 2.77 x10^6/uL (3.50-5.40) Hemoglobin 8.9 g/dL (12.0-15.5) Hematocrit 25.3 % (36.0-47.0) Mean Corpuscular Volume 91 fL (79-100) Mean Corpuscular Hemoglobin 32 pg (25-35) Mean Corpuscular Hemoglobin Concent 35 g/dL (31-37) Red Cell Distribution Width 13.8 % (11.5-14.5) Platelet Count 172 x10^3/uL (140-400) Neutrophils (%) (Auto) 61 % (31-73) Lymphocytes (%) (Auto) 28 % (24-48) Monocytes (%) (Auto) 7 % (0-9) Eosinophils (%) (Auto) 4 % (0-3) Basophils (%) (Auto) 0 % (0-3) Neutrophils # (Auto) 5.0 x10^3uL (1.8-7.7) Lymphocytes # (Auto) 2.3 x10^3/uL (1.0-4.8) Monocytes # (Auto) 0.6 x10^3/uL (0.0-1.1) Eosinophils # (Auto) 0.3 x10^3/uL (0.0-0.7) Basophils # (Auto) 0.0 x10^3/uL (0.0-0.2) Sodium Level 145 mmol/L (136-145) Potassium Level 3.6 mmol/L (3.5-5.1) Chloride Level 110 mmol/L (98-107) Carbon Dioxide Level 26 mmol/L (21-32) Anion Gap 9 (6-14) Blood Urea Nitrogen 23 mg/dL (7-20) Creatinine 0.9 mg/dL (0.6-1.0) Estimated GFR (Cockcroft-Gault) 62.1 Glucose Level 101 mg/dL (70-99) Calcium Level 8.2 mg/dL (8.5-10.1) Review of Systems Review of Systems No LAWSON/blurry vision No rashes No SOB No JVD Assessment and Plan Assessmemt and Plan Problems Medical Problems: (1) GI bleed Status: Acute 2. Hypertension 3. GERD 4. Depression 5. Breast cancer. 6. Appendectomy 7. Cholecystectomy 8. Tubal ligation 9. Lap band 10. Bilateral mastectomy 11. Left lumpectomy 12. Left breast biopsy 13. Multiple feet surgeries 14. Bilateral knee replacements 15. Cataract extraction Plan: -Continue current medications and adjust accordingly as needed. -Continue specialty consultation. -D/C if specialties agree. -Patient wants to be D/C bc not able to get CT scan. -Patient will have CT done another time. -Inform patient to return to hospital if significant GI bleed returns. Problems: Comment Review of Relevant I have reviewed the following items hans (where applicable) has been applied. Labs Laboratory Tests Test 07/28/16 05:05 07/29/16 04:25 White Blood Count 7.1 x10^3/uL (4.0-11.0) 8.3 x10^3/uL (4.0-11.0) Red Blood Count 2.98 x10^6/uL (3.50-5.40) 2.77 x10^6/uL (3.50-5.40) Hemoglobin 9.3 g/dL (12.0-15.5) 8.9 g/dL (12.0-15.5) Hematocrit 27.5 % (36.0-47.0) 25.3 % (36.0-47.0) Mean Corpuscular Volume 92 fL (79-100) 91 fL (79-100) Mean Corpuscular Hemoglobin 31 pg (25-35) 32 pg (25-35) Mean Corpuscular Hemoglobin Concent 34 g/dL (31-37) 35 g/dL (31-37) Red Cell Distribution Width 14.2 % (11.5-14.5) 13.8 % (11.5-14.5) Platelet Count 166 x10^3/uL (140-400) 172 x10^3/uL (140-400) Neutrophils (%) (Auto) 56 % (31-73) 61 % (31-73) Lymphocytes (%) (Auto) 34 % (24-48) 28 % (24-48) Monocytes (%) (Auto) 7 % (0-9) 7 % (0-9) Eosinophils (%) (Auto) 3 % (0-3) 4 % (0-3) Basophils (%) (Auto) 0 % (0-3) 0 % (0-3) Neutrophils # (Auto) 3.9 x10^3uL (1.8-7.7) 5.0 x10^3uL (1.8-7.7) Lymphocytes # (Auto) 2.4 x10^3/uL (1.0-4.8) 2.3 x10^3/uL (1.0-4.8) Monocytes # (Auto) 0.5 x10^3/uL (0.0-1.1) 0.6 x10^3/uL (0.0-1.1) Eosinophils # (Auto) 0.2 x10^3/uL (0.0-0.7) 0.3 x10^3/uL (0.0-0.7) Basophils # (Auto) 0.0 x10^3/uL (0.0-0.2) 0.0 x10^3/uL (0.0-0.2) Sodium Level 147 mmol/L (136-145) 145 mmol/L (136-145) Potassium Level 3.7 mmol/L (3.5-5.1) 3.6 mmol/L (3.5-5.1) Chloride Level 112 mmol/L (98-107) 110 mmol/L (98-107) Carbon Dioxide Level 26 mmol/L (21-32) 26 mmol/L (21-32) Anion Gap 9 (6-14) 9 (6-14) Blood Urea Nitrogen 23 mg/dL (7-20) 23 mg/dL (7-20) Creatinine 0.8 mg/dL (0.6-1.0) 0.9 mg/dL (0.6-1.0) Estimated GFR (Cockcroft-Gault) 71.1 62.1 Glucose Level 91 mg/dL (70-99) 101 mg/dL (70-99) Calcium Level 8.2 mg/dL (8.5-10.1) 8.2 mg/dL (8.5-10.1) Laboratory Tests Test 07/29/16 04:25 White Blood Count 8.3 x10^3/uL (4.0-11.0) Red Blood Count 2.77 x10^6/uL (3.50-5.40) Hemoglobin 8.9 g/dL (12.0-15.5) Hematocrit 25.3 % (36.0-47.0) Mean Corpuscular Volume 91 fL (79-100) Mean Corpuscular Hemoglobin 32 pg (25-35) Mean Corpuscular Hemoglobin Concent 35 g/dL (31-37) Red Cell Distribution Width 13.8 % (11.5-14.5) Platelet Count 172 x10^3/uL (140-400) Neutrophils (%) (Auto) 61 % (31-73) Lymphocytes (%) (Auto) 28 % (24-48) Monocytes (%) (Auto) 7 % (0-9) Eosinophils (%) (Auto) 4 % (0-3) Basophils (%) (Auto) 0 % (0-3) Neutrophils # (Auto) 5.0 x10^3uL (1.8-7.7) Lymphocytes # (Auto) 2.3 x10^3/uL (1.0-4.8) Monocytes # (Auto) 0.6 x10^3/uL (0.0-1.1) Eosinophils # (Auto) 0.3 x10^3/uL (0.0-0.7) Basophils # (Auto) 0.0 x10^3/uL (0.0-0.2) Sodium Level 145 mmol/L (136-145) Potassium Level 3.6 mmol/L (3.5-5.1) Chloride Level 110 mmol/L (98-107) Carbon Dioxide Level 26 mmol/L (21-32) Anion Gap 9 (6-14) Blood Urea Nitrogen 23 mg/dL (7-20) Creatinine 0.9 mg/dL (0.6-1.0) Estimated GFR (Cockcroft-Gault) 62.1 Glucose Level 101 mg/dL (70-99) Calcium Level 8.2 mg/dL (8.5-10.1) Medications Current Medications Ondansetron HCl (Zofran) 4 mg PRN Q6HRS PRN IV NAUSEA/VOMITING Last administered on 07/26/16 22:54; Start 07/26/16 at 22:45 Pantoprazole Sodium (Protonix Vial) 40 mg 1X ONCE IVP Last administered on 22:56; Start 07/26/16 at 22:45; Stop 07/26/16 at 22:46; Status DC Pantoprazole Sodium 80 mg/ Sodium Chloride 100 ml @ 10 mls/hr 1X ONCE IV Last administered on 07/26/16 23:03; Start 07/26/16 at 22:45; Stop 07/27/16 at 08:44; Status DC Sodium Chloride 1,000 ml @ 1,000 mls/hr 1X ONCE IV Last administered on 00:12; Start 07/26/16 at 23:30; Stop 07/27/16 at 00:29; Status DC Fentanyl Citrate (Fentanyl 2ml Vial) 50 mcg PRN Q2HR PRN IV PAIN; Start at 00:00; Stop 07/27/16 at 23:59; Status DC Acetaminophen (Tylenol) 650 mg PRN Q4HRS PRN PO FEVER; Start 07/27/16 at 00:00 ; Stop 07/27/16 at 23:59; Status DC Potassium Chloride/Dextrose/ Sod Cl 1,000 ml @ 75 mls/hr 1X ONCE IV Last administered on 07/27/16 00:14; Start 07/27/16 at 00:00; Stop 07/27/16 at 13:19 ; Status DC Pantoprazole Sodium 80 mg/ Sodium Chloride 100 ml @ 10 mls/hr Q10H IV Last administered on 07/29/16 10:36; Start 07/27/16 at 10:00 Carvedilol (Coreg) 6.25 mg BIDWMEALS PO Last administered on 07/28/16 16:42; Start 07/27/16 at 17:00 Furosemide (Lasix) 20 mg DAILY PO Last administered on 07/28/16 08:49; Start 07/28/16 at 09:00 Tramadol HCl (Ultram) 50 mg Q4H PRN PO PAIN; Start 07/27/16 at 11:15 Non-Formulary Medication 2 puff PRN Q6HRS PRN INH SHORTNESS OF BREATH; Start at 11:15; Status UNV Non-Formulary Medication 20 mg PRN DAILY PRN PO SEE COMMENTS; Start 07/27/16 at 11:15; Status UNV Potassium Chloride (Klor-Con) 20 meq DAILYWBKFT PO Last administered on 08:50; Start 07/28/16 at 08:00 Sertraline HCl (Zoloft) 100 mg DAILY PO Last administered on 07/28/16 08:50; Start 07/28/16 at 09:00 Losartan Potassium (Cozaar) 50 mg DAILY PO Last administered on 07/28/16 08:51 ; Start 07/28/16 at 09:00 Acetaminophen (Tylenol) 325 mg PRN Q6HRS PRN PO MILD PAIN / TEMP; Start at 11:15 Hydralazine HCl (Apresoline) 10 mg PRN Q4HRS PRN IVP ELEVATED BP, SEE COMMENTS ; Start 07/27/16 at 11:15 Ondansetron HCl (Zofran) 4 mg PRN Q8HRS PRN IV NAUSEA/VOMITING; Start 07/27/16 at 11:15 Albuterol Sulfate (Ventolin Neb Soln) 2.5 mg PRN Q4HRS PRN NEB SHORTNESS OF BREATH; Start 07/27/16 at 11:15 Propofol 20 ml @ As Directed STK-MED ONCE IV ; Start 07/27/16 at 12:58; Stop at 12:59; Status DC Lidocaine HCl (Lidocaine Pf 2% Vial) 5 ml STK-MED ONCE .ROUTE ; Start 07/27/16 at 12:58; Stop 07/27/16 at 12:59; Status DC Barium Sulfate (Polibar Acb) 397 gm 1X ONCE CA Last administered on 07/27/16 15:00; Start 07/27/16 at 15:00; Stop 07/27/16 at 15:01; Status DC Barium Sulfate (Liquid E-Z Paque) 355 ml 1X ONCE PO Last administered on 15:35; Start 07/27/16 at 15:00; Stop 07/27/16 at 15:01; Status DC Simethicone/ Sodium Bicarb/ Citric Ac (E-Z-Gas) 1 packet 1X ONCE PO Last administered on 07/27/16 15:36; Start 07/27/16 at 15:00; Stop 07/27/16 at 15:01 ; Status DC Iohexol (Omnipaque 240 Mg/ml) 30 ml 1X ONCE PO Last administered on 07/28/16 11:36; Start 07/28/16 at 10:00; Stop 07/28/16 at 10:01; Status DC Iohexol (Omnipaque 300 Mg/ml) 75 ml 1X ONCE IV Last administered on 07/28/16 11:36; Start 07/28/16 at 10:00; Stop 07/28/16 at 10:01; Status DC Info (Do NOT chart on this entry -- for MONITORING) 1 each PRN DAILY PRN MC SEE COMMENTS; Start 07/28/16 at 10:00; Stop 07/30/16 at 09:59 Magnesium Citrate (Citroma) 296 ml 1X ONCE PO ; Start 07/29/16 at 10:30; Stop 07/29/16 at 10:35; Status DC Bisacodyl (Dulcolax Supp) 10 mg 1X ONCE CA ; Start 07/29/16 at 10:30; Stop at 10:35; Status DC Active Scripts Active Reported Tramadol Hcl 50 Mg Tablet 50 Mg PO Q4H PRN Vitamin D2 (Ergocalciferol (Vitamin D2)) 50,000 Unit Capsule 50,000 Unit PO WEEKLY Omeprazole 20 Mg Capsule.dr 20 Mg PO PRN DAILY PRN Ventolin Hfa Inhaler (Albuterol Sulfate) 18 Gm Hfa.aer.ad 2 Puff INH PRN Q6HRS PRN Potassium Chloride 20 Meq Tablet.er 20 Meq PO DAILY Carvedilol 6.25 Mg Tablet 6.25 Mg PO BIDWMEALS Furosemide 20 Mg Tablet 20 Mg PO DAILY [multivitamin] 1 Tab PO DAILY Aspir 81 (Aspirin) 81 Mg Tablet. 1 Tab PO DAILY Zoloft (Sertraline Hcl) 100 Mg Tablet 1 Tab PO DAILY [losartan] 100 Mg PO DAILY Vitals/I & O Vital Sign - Last 24 Hours 07/28/16 07/28/16 07/28/16 07/28/16 15:00 16:42 19:00 20:00 Temp 98.1 97.7 98.1 97.7 Pulse 77 77 85 Resp 20 18 B/P (MAP) 117/56 (76) 117/56 106/52 (70) Pulse Ox 95 96 O2 Delivery Room Air Room Air Room Air 07/28/16 07/29/16 07/29/16 07/29/16 23:00 03:00 07:00 07:35 Temp 98.6 98.3 97.5 98.6 98.3 97.5 Pulse 76 76 76 Resp 16 16 20 B/P (MAP) 109/59 (76) 127/63 (84) 125/68 (87) Pulse Ox 95 98 96 O2 Delivery Room Air Room Air Room Air Room Air 07/29/16 07/29/16 08:00 08:52 Pulse 76 76 B/P (MAP) 125/68 125/68 Intake and Output 07/28/16 07/28/16 07/29/16 15:00 23:00 07:00 Intake Total 500 ml 0 ml Balance 500 ml 0 ml MEDARDO RUSSO III DO July 29, 2016 13:11
--- NOTE | 2016-08-07 22:49 | DS ---
DATE OF DISCHARGE: 07/29/2016 ADMISSION DIAGNOSIS: Gastrointestinal bleed. DISCHARGE DIAGNOSIS: Resolving gastrointestinal bleed. HOSPITAL COURSE: The patient is a pleasant 71-year-old female presented with GI bleed. Her hemoglobin remains stable. We did consult GI, they wanted to do an outpatient endoscopy. DISPOSITION: Home. ACTIVITY: As tolerated. DIET: Low sodium. MEDICATIONS: Please see the MRAD. TOTAL TIME: 36 minutes. MEDARDO RUSSO DO DR: AKTHRYN/jesus alberto JOB#: [id number] / [id number]
== END 2016-07-29 14:05 | disposition home or self-care (01) | DRG 378 ==
LOC: ER 22:12 → 1 WEST ICU 23:25 → 4 NORTH 07-27 16:52
PROVIDERS: ADMIT Internal Medicine; ATTEND Internal Medicine
PROC: 0DJ08ZZ Inspection of Upper Intestinal Tract, Via Natural or Artificial Opening Endoscopic (ICD-10-PCS; principal; 2016-07-26)
DX: K25.4 Chronic or unspecified gastric ulcer with hemorrhage (principal); Z68.43 Body mass index [BMI] 50.0-59.9, adult; D17.9 Benign lipomatous neoplasm, unspecified; F32.9 Major depressive disorder, single episode, unspecified; D64.9 Anemia, unspecified; I10 Essential (primary) hypertension; Z96.653 Presence of artificial knee joint, bilateral; K21.9 Gastro-esophageal reflux disease without esophagitis; Z79.82 Long term (current) use of aspirin; Z85.3 Personal history of malignant neoplasm of breast; Z90.13 Acquired absence of bilateral breasts and nipples; Z98.84 Bariatric surgery status; Z90.49 Acquired absence of other specified parts of digestive tract; Z98.51 Tubal ligation status; Z98.49 Cataract extraction status, unspecified eye; Z79.1 Long term (current) use of non-steroidal anti-inflammatories (NSAID); Z79.899 Other long term (current) drug therapy; Z88.5 Allergy status to narcotic agent; Z91.041 Radiographic dye allergy status; E66.9 Obesity, unspecified
CPT/HCPCS: 36415; 74240; 80048; 80076; 82274; 85027; 85610; 85730; 86850; 86870; 86900; 86901; 87641; 93005; 94250; 94640; 94760; 96365; 96366; 96375; C9113; J2405; J2704; J7030; Q9966; Q9967; 99285-25